=== PATIENT | male | born 1945 | race Caucasian/White ===

== ENCOUNTER 2018-06-01 20:34 | Inpatient (IN) ==
[2018-06-01] MEDS ORDERED: HALOPERIDOL LACTATE 5 MG/ML VIAL IM ONE ×2 (20:44→20:55)
[2018-06-01] MEDS ORDERED: HALOPERIDOL LACTATE 5 MG/ML VIAL ONE (20:44)
[2018-06-01] MEDS ORDERED: 0.9 % SODIUM CHLORIDE 1,000 ML IV ONE (21:28)
--- NOTE | 2018-06-01 21:35 | Emergency Department Note ---
Altered Mental Status HPI - General Source: family, police Mode of arrival: wheelchair Limitations: altered mental status - History of Present Illness MD complaint: altered mental status, confusion Onset (ago): day(s) (1) Timing confirmed by: spouse Severity: moderate Consistency of Symptoms: getting worse Context: history of similar presentation ( states patient has a urinary tract infection or drug overdose he acts confused and aggressive) <Ruma Pressley - Last Filed: 06/01/18 22:02> - General Source: patient, family Mode of arrival: wheelchair Limitations: altered mental status <Meera Bearisaura Cole - Last Filed: 06/02/18 02:26> - General Chief Complaint: Altered Mental Status Stated Complaint: confusion Time Seen by Provider: 06/01/18 20:48 - History of Present Illness HPI Narrative: 72-year-old male in the ED with present. Patient was combative in the parking lot and police were called to assist with getting patient into hospital. Patient was escorted with 6 police officers in a wheelchair to assist patient from not falling out of the wheelchair due to his confusion and aggressiveness. Patient was placed in T7 with the assist of police officers. Patient was not oriented to person place time or situation and aggressive. provided health history. Patient saw Dr. Carrero 05/09/18 and had assessment and plan for his recurrent UTIs. Patient was to increase total fluid intake to 2 L a day and after current antibiotic regimen of Augmentin was finished he was to begin taking prophylactic nitrofurantoin 100 mg every night. stated this did not occur due to batteries being changed in his brain stimulator. visited with Dr. celis today on the phone and had prescription sent to pharmacy for pickup. Medication was to start tomorrow. This afternoon patient was still taking oral medications. But states over the last week he has had decreased activity coupled with decreased sleeping habits. states he has only slept a couple hours here and there and this is not normal for him. Patient has chronic kidney disease stage III, hypertension, Parkinson's, nephrolithiasis, malignant lymphoma, recurrent UTIs. (Ruma Pressley) Patient was checked out to me at shift change. I discussed this patient with Ruma AMARAL; I agree with her evaluation management documentation. History is as above in particular patient's and daughter note that he has significant difficulty with UTIs and is seeing Dr. Carrero. He just finished a regimen of Augmentin and was scheduled to start Macrobid tonight but did not. Patient typically gets combative with altered mental status when he has a UTI and this is typical for him the last 12 times or so he has had UTIs. I reviewed Dr. Carrero's note Multiple complicating features including Parkinson's with history of deep brain stimulator (Rock Bear) - Related Data Home Medications Medication Instructions Recorded Confirmed Citalopram [Celexa] 20 mg PO DAILY 01/22/15 06/01/18 Pantoprazole [Protonix] 40 mg PO DAILY 01/22/15 06/01/18 Aspirin [Lo-Dose Aspirin EC] 81 mg PO DAILY 09/07/16 06/01/18 clonazePAM [KlonoPIN] 0.5 mg PO ONCE 04/11/17 06/01/18 fluoxetine 20 mg tablet 20 mg PO QDAY 09/27/17 06/01/18 carbidopa 25 mg-levodopa 100 mg 1 tab PO .COMPLEX tab 05/10/18 06/01/18 tablet ropinirole 4 mg tablet 4 mg PO TID tab 05/10/18 06/01/18 Memantine [Namenda] 10 mg PO BID 06/01/18 06/01/18 Previous Rx's Medication Instructions Recorded lisinopril 10 mg tablet 10 mg PO QDAY #30 tab 10/11/17 Allergies Allergy/AdvReac Type Severity Reaction Status Date / Time shellfish derived Allergy Severe softshell Verified 06/01/18 20:40 fish, hives morphine AdvReac Intermediate HALLUCINATIONS, Verified 06/01/18 20:40 HYDROCODONE OK THOUGH Review of Systems All systems ED: reviewed and negative except as stated. <Ruma Pressley - Last Filed: 06/01/18 22:02> Limitations: ROS unobtainable due to patients medical condition <Rock Bear - Last Filed: 06/02/18 02:26> Past Medical History - Past Medical History Medical history: Reports: cancer (prostate and lymphoma), coronary artery disease, GERD, hypertension, kidney stones, renal disease, TIA, other (parkinson 's disease, RLS, hernia, anemia, Barretts) Psychiatric history: Reports: no psych history Surgical history ED: Reports: cataract, colectomy, colostomy, other (brain) - Social History smoking status: Former smoker Alcohol use: Reports: None Drug use: Reports: none <Ruma Pressley - Last Filed: 06/01/18 22:02> <Rock Bear - Last Filed: 06/02/18 02:26> - Past Medical History PMFSH Narrative: All Active Problems (Last Updated 05/10/18 @ 15:48 by Tabitha Shea) Chronic kidney disease, stage 4 (severe) (Chronic) Osteoarthritis (Chronic) Muscle weakness (Chronic) Sinusitis (Chronic) Depression (Chronic) History of falling (Chronic) Cough (Chronic) Nasal congestion (Chronic) Urinary tract infection (Acute) Pneumonia (Acute) Right middle lobe pneumonia (Acute) Parkinson disease (Chronic) Urgency of urination (Acute) Nephrolithiasis (Chronic) Febrile illness (Chronic) Hypernatremia (Chronic) Hypertensive renal disease (Chronic) Anemia (Chronic) CKD (chronic kidney disease), stage III (Chronic) Hx of external ear surgery (Acute) Hx of brain surgery (Acute) Hx of colostomy (Acute) Hx of colectomy (Acute) Restless leg syndrome (Chronic) Prostate cancer (Chronic) Parkinsons disease (Chronic) Pain in joint, shoulder region (Chronic) Urinary incontinence (Chronic) MRSA (methicillin resistant Staphylococcus aureus) (Chronic) Malignant lymphoma (Chronic) Hypertension, essential (Chronic) Fracture, humerus closed (Chronic) Incisional hernia (Chronic) Gastroesophageal reflux (Chronic) Fatigue (Chronic) Diarrhea (Chronic) Chest pain (Chronic) CAD (coronary artery disease) (Chronic) Benign localized hyperplasia of prostate without urinary obstruction (Chronic) Monroy's esophagus (Chronic) Renal failure (Chronic) TIA (transient ischemic attack) (Chronic) Past Surgical History (Last Reviewed 05/09/18 @ 08:35 by Macie Barros RN) Hx of external ear surgery (Acute) Hx of brain surgery (Acute) Hx of colostomy (Acute) Hx of colectomy (Acute) Family History (Last Reviewed 05/09/18 @ 08:35 by Macie Barros RN) no family member listed Atherosclerosis of coronary artery (Ruma Pressley) Reviewed (Rock Bear) Physical Exam Limitations: altered mental status General appearance: in no apparent distress (post medication administration- sleeping) Head: atraumatic, normocephalic, normal inspection Eye: Present: normal appearance, miosis (constriction). Absent: conjunctival injection, periorbital swelling, periorbital tenderness ENT: normal exam, normal oropharynx, mucous membranes dry, normal external ear exam Neck: Present: normal inspection. Absent: tenderness, lymphadenopathy Chest: Present: normal inspection, symmetric chest wall rise, other (two identical incision sites where neuro stimulator batteries placed, sites well proximated and covered with steri-strips 3cm in length). Absent: tenderness Respiratory: Present: normal lung sounds bilaterally, other (currently snoring with SPO2 95% RA). Absent: respiratory distress, rales/crackles, wheezes, stridor Cardiovascular: Present: regular rate, normal rhythm. Absent: systolic murmur, diastolic murmur Abdominal: Present: soft, normal bowel sounds, hernia, other (old surgical scar vertical center abdomen). Absent: distention, tenderness, guarding, rebound, rigidity Extremities: Present: normal inspection. Absent: pedal edema Skin: Present: warm, dry, intact, normal color. Absent: rash, cyanosis, diaphoresis, erythema <Ruma Pressley - Last Filed: 06/01/18 22:02> <Rock Bear - Last Filed: 06/02/18 02:26> Patient was initially thrashing about before we gave him Haldol. Haldol did help with calming him down however his sleep is fitful and he snored loudly. He developed elevated blood pressure while sleeping (211/169 ) and labetalol was given for that, which did help (Rock Bear) Vital Signs Temperature 97.0 F 06/01/18 20:35 Temperature 97.0 F 06/01/18 20:35 Pulse Rate 86 06/02/18 01:01 Respiratory Rate 21 06/02/18 01:01 Blood Pressure 176/90 06/02/18 01:01 Pulse Oximetry (%) 94 06/02/18 01:01 Altered Mental Status - Medical Records Medical records reviewed: Yes I reviewed the patient's medical records. - Lab Data Lab results reviewed: Yes I reviewed the patient's lab results. Result diagrams: 06/01/18 21:30 06/01/18 21:29 <Ruma Pressley - Last Filed: 06/01/18 22:02> - Lab Data Lab results reviewed: Yes I reviewed the patient's lab results. Result diagrams: 06/01/18 21:30 06/01/18 21:29 <Rock Bear - Last Filed: 06/02/18 02:26> - [facility] Narrative Medical decision making narrative: Dr. Bear consulted upon patient arrival and verified 5-10 mg Haldol IM appropriate for calming patient. Total of 10 mg was administered in 2 separate 5mg doses. Once patient calmed RN and tech placed patient into gown started IV , tisha blood, catheterized patient for urine sample. Provided pt history and diagnostics to due to end of this providers shift. Further patient care will be provided by Dr. Bear. (HuanYumikoRuma Marianela) - Lab Data Lab Results 06/01/18 06/01/18 06/01/18 Range/Units 21:29 21:30 21:34 WBC 6.2 (4.5-11.0) K/mcL RBC 4.16 L (4.50-5.90) M/mcL Hgb 13.6 (13.5-16.5) g/dL Hct 41.3 (41.0-55.0) % MCV 99.2 (80.0-100.0) fL MCH 32.7 (26.0-34.0) pg MCHC 33.0 (31.0-36.0) g/dL RDW 13.4 (11.5-14.5) % Plt Count 205 (140-440) K/mcL MPV 7.0 L (7.4-10.4) fL Gran % 55.8 (38.0-78.0) % Lymph % (Auto) 32.2 (15.5-49.0) % [place] % (Auto) 6.9 (1.0-12.0) % Eos % (Auto) 4.2 (0.0-7.0) % Baso % (Auto) 0.9 (0.0-2.0) % Gran # 3.4 (1.8-8.0) K/mcL Lymph # (Auto) 2.0 (1.5-4.8) K/mcL [place] # (Auto) 0.4 (0.1-0.9) K/mcL Eos # (Auto) 0.3 (0.0-0.7) K/mcL Baso # (Auto) 0.1 (0.0-0.3) K/mcL Sodium 147 H (133-145) mmol/L Potassium 3.9 (3.3-5.1) mmol/L Chloride 104 (96-108) mmol/L Carbon Dioxide 27 (22-30) mmol/L Anion Gap 16.0 (8-16) BUN 30 H (8-23) mg/dl Creatinine 1.9 H (0.7-1.2) mg/dl GFR Calculation 34 Glucose 156 H (70-105) mg/dL Calcium 9.5 (8.6-10.4) mg/dl Total Bilirubin 0.5 (0.0-1.0) mg/dL AST 21 (0-37) U/l ALT < 5 (0-40) U/l Alkaline Phosphatase 88 (39-117) U/L Total Protein 7.4 (5.9-8.4) gm/dL Albumin 4.0 (3.2-5.2) gm/dL Globulin 3.4 (2.2-3.7) gm/dL Albumin/Globulin Ratio 1.2 (1.0-2.3) Amylase 52 (28-100) U/L Lipase 14 (7-60) U/L Urine Color Yellow Urine Appearance Clear Urine pH 6.0 (5.0-9.0) Ur Specific [place] 1.017 (1.000-1.035) Urine Protein Neg (NEG) mg/dL Urine Glucose (UA) Negative (NEG) mg/dL Urine Ketones Neg (NEG) mg/dL Urine Occult Blood Neg (<0.03) mg/dL Urine Nitrate Neg (NEG) Urine Bilirubin Neg (NEG) mg/dL Urine Urobilinogen Neg (NEG) mg/dL Ur Leukocyte Esterase Neg (NEG) /uL Urine RBC 1 (0-1) /hpf Urine WBC 1 (0-4) /hpf Ur Squamous Epith Cells 0 (0-4) /hpf Urine Bacteria 0 (0) /hpf Urine Mucus Few (0) /hpf Ur Culture Indicated? No Disposition Pt seen by OCCUPATIONAL HYGIENIST/PA only: No (Chema) Time of Disposition: 22:07 <Ruma Pressley - Last Filed: 06/01/18 22:02> Pt seen by OCCUPATIONAL HYGIENIST/PA only: No <Rock Bear - Last Filed: 06/02/18 02:26> Clinical Impression: Hypernatremia, CKD (chronic kidney disease), stage III Altered mental status Qualifiers: Altered mental status type: disorientation Qualified Code(s): R41.0 - Disorientation, unspecified Pneumonia Qualifiers: Pneumonia type: due to unspecified organism Laterality: right Lung location: upper lobe of lung Qualified Code(s): J18.1 - Lobar pneumonia, unspecified organism Summary: Patient initially seen by Ruma AMARAL. At shift change I assumed care. Given labetalol for blood pressure 211/169. Rocephin for presumed UTI partially treated. Labetalol help with blood pressure bring it down into the 150s and 60s systolic. Hypernatremia is seen on laboratory as well as slightly elevated creatinine at 1.9-concern for free water depletion. I reviewed his chart note that he has had multiple previous UTIs that were pansensitive I discussed the case with Dr. Orellana hospitalist with regards to admission for altered mental status and likely partially treated urinary tract infection. He was concerned about other causes of altered mental status so advised CT scan and chest x-ray- We will get CT scan of the head to further sort out altered mental status and chest x-ray. However as I have to send the patient to [facility] because our CT scanner is down, I will give him a dose of Ativan prior to going CT head is read as no acute findings. However chest x-ray shows bilateral pneumonia and widened mediastinum. He is sent back to [facility] for CT scan of the chest without contrast. CT scan of the chest shows widened mediastinum with tortuous aorta but no dissection. Notable right upper infiltrate. He received another dose of Ativan to help with keeping him calm for CT scan Discussed findings with Dr. Orellana, the hospitalist, who agreed to accept the patient for altered mental status and pneumonia (Rock Bear) Disposition: Xfer As Inpt ([facility]) Condition: Serious Referrals: Lobito Do ARNP [Primary Care Provider] -
[2018-06-01 22:14] LABS: Basophils # (Auto) 0.1 K/mcL (0.0-0.3); Basophils % (Auto) 0.9 % (0.0-2.0); Eosinophils # (Auto) 0.3 K/mcL (0.0-0.7); Eosinophils % (Auto) 4.2 % (0.0-7.0); Granulocytes % (Auto) 55.8 % (38.0-78.0); Lymphocytes % (Auto) 32.2 % (15.5-49.0); Mean Cell Volume 99.2 fL (80.0-100.0); Mean Corpuscular Hemoglobin 32.7 pg (26.0-34.0); Monocytes # (Auto) 0.4 K/mcL (0.1-0.9); Monocytes % (Auto) 6.9 % (1.0-12.0); Platelet Count 205 K/mcL (140-440); RBC 4.16 M/mcL (4.50-5.90); Red Cell Distribution Width 13.4 % (11.5-14.5)
[2018-06-01 22:32] LABS: Appearance,Urine CLEAR; Bacteria,Urine 0 /hpf (0); Bilirubin,Urine NEG (NEG); Color,Urine YELLOW; Glucose,Urine (UA) NEGATIVE (NEG); Leukocyte Esterase,Urine NEG /uL (NEG); Mucus,Urine FEW /hpf (0); Protein,Urine NEG (NEG); Specific Gravity,Urine 1.017 (1.000-1.035); Urine Blood NEG mg/dL (<0.03); Urine RBC 1 /hpf (0-1); Urine Squamous Epithelial Cell 0 /hpf (0-4); Urine WBC 1 /hpf (0-4); Urobilinogen,Urine NEG (NEG)
[2018-06-01 22:38] LABS: ALT/SGPT < 5 U/l (0-40); Albumin/Globulin Ratio 1.2 (1.0-2.3); Alkaline Phosphatase 88 U/L (39-117); Amylase 52 U/L (28-100); Blood Urea Nitrogen 30 mg/dl (8-23); Lipase 14 U/L (7-60)
[2018-06-01] MEDS ORDERED: LABETALOL HCL 20 MG/4 ML SYRINGE IV ONE (22:50)
[2018-06-01] MEDS ORDERED: cefTRIAXone 1 GM VIAL IV ONE (22:51)
[2018-06-01] MEDS ORDERED: LORazepam 2 MG/ML VIAL IV ONE (23:26)
[2018-06-02] MEDS ORDERED: LORazepam 2 MG/ML VIAL IV ONE (01:00)
[2018-06-02] MEDS ORDERED: methylPREDNISolone SOD SUCC 125 MG/2 ML VIAL IV ONE (02:15)
[2018-06-02] MEDS ORDERED: IPRATROPIUM/ALBUTEROL 3 ML AMPUL.NEB NEB ONE (02:15)
[2018-06-02] MEDS ORDERED: VANCOMYCIN PER PHARMACY IV ONE (03:06)
[2018-06-02] MEDS ORDERED: PIPERACILLIN SODIUM/TAZOBACTAM 3.375 GM in DEXTROSE 5% IN WATER 50 ML IV SCH (03:06)
[2018-06-02] MEDS ORDERED: VANCOMYCIN 1,000 MG in 0.9 % SODIUM CHLORIDE 250 ML IV ONE (03:06)
[2018-06-02] MEDS ORDERED: AZITHROMYCIN 500 MG in DEXTROSE 5% IN WATER 250 ML IV ONE (03:06)
[2018-06-02] MEDS ORDERED: DEXMEDETOMIDINE HCL 400 MCG/100 ML BAG IV PRN (03:06)
[2018-06-02] MEDS ORDERED: LORazepam 2 MG/ML VIAL IV PRN (03:06)
[2018-06-02] MEDS ORDERED: ACETAMINOPHEN 325 MG TABLET PO PRN (03:06)
[2018-06-02] MEDS ORDERED: NALOXONE HCL 0.4 MG/ML VIAL IV PRN (03:06)
[2018-06-02] MEDS ORDERED: LORazepam 2 MG/ML VIAL ONE ×2 (03:16→05:35)
[2018-06-02] MEDS: IPRATROPIUM/ALBUTEROL 3 ML AMPUL.NEB NEB SCH ×6 (04:23→23:12)
[2018-06-02] MEDS: 0.9 % SODIUM CHLORIDE 10 ML SYRINGE IV SCH ×3 (04:24→22:32)
[2018-06-02] MEDS: THIAMINE 100 MG in 0.9 % SODIUM CHLORIDE 50 ML IV SCH ×2 (04:47→09:54)
[2018-06-02] MEDS: DEXTROSE 5%-1/2NS W/20MEQ KCL 1,000 ML IV SCH ×2 (06:10→17:24)
--- NOTE | 2018-06-02 06:25 | XRay Report ---
INDICATION: Altered mental status TECHNIQUE: AP chest x-ray, portable supine COMPARISON: 06/06/2016, 06/02/2016 FINDINGS: There are bilateral power packs with leads ascending off the plane of this film No parenchymal consolidation. There is peribronchial thickening which may indicate bronchitis or interstitial edema. No change in heart size. Follow-up upright PA and lateral chest x-ray recommended when clinically appropriate IMPRESSION: 1. Suboptimal evaluation 2. Possible interstitial edema. No focal infiltrates Interpreted and Authenticated by: Sno Arvizu 06/02/18
[2018-06-02] MEDS: methylPREDNISolone SOD SUCC 125 MG/2 ML VIAL IV SCH ×3 (07:17→22:32)
[2018-06-02] MEDS ORDERED: VANCOMYCIN PER PHARMACY IV SCH (08:00)
[2018-06-02] MEDS ORDERED: VANCOMYCIN 500 MG in 0.9 % SODIUM CHLORIDE 100 ML IV ONE (09:00)
[2018-06-02] MEDS: PANTOPRAZOLE 40 MG TABLET PO SCH (09:49)
[2018-06-02] MEDS: ASPIRIN 81 MG TAB.CHEW PO SCH (09:50)
[2018-06-02] MEDS: CARBIDOPA/LEVODOPA 25/100 TABLET PO SCH ×5 (09:50→19:41)
[2018-06-02] MEDS: HEPARIN 5,000 UNIT/ML VIAL SQ SCH ×2 (10:15→21:03)
[2018-06-02 10:16] LABS: Basophils # (Auto) 0 K/mcL (0.0-0.3); Basophils % (Auto) 0.3 % (0.0-2.0); Eosinophils # (Auto) 0 K/mcL (0.0-0.7); Eosinophils % (Auto) 0 % (0.0-7.0); Lymphocytes # (Auto) 0.4 K/mcL (1.5-4.8); Lymphocytes % (Auto) 4.2 % (15.5-49.0); Mean Cell Volume 99.8 fL (80.0-100.0); Mean Corpuscular HGB Conc 32.6 g/dL (31.0-36.0); Mean Corpuscular Hemoglobin 32.5 pg (26.0-34.0); Monocytes # (Auto) 0 K/mcL (0.1-0.9); Monocytes % (Auto) 0.5 % (1.0-12.0); Platelet Count 209 K/mcL (140-440); RBC 4.51 M/mcL (4.50-5.90); Red Cell Distribution Width 13.4 % (11.5-14.5)
[2018-06-02 10:49] LABS: ALT/SGPT 11 U/l (0-40); Albumin/Globulin Ratio 1.1 (1.0-2.3); Alkaline Phosphatase 85 U/L (39-117); Bilirubin,Direct < 0.2 mg/dL (0.0-0.3); Blood Urea Nitrogen 27 mg/dl (8-23); Gamma Glutamyl Transpeptidase 17 U/L (8-61); Uric Acid 7.9 mg/dL (2.5-8.0)
--- NOTE | 2018-06-02 11:41 | Internal Med History&Physical ---
Medical - H&P: HPI Patient information: Note initiated : 06/02/18 at 11:39 am Service Date, if different from initiated Date: [] Patient: Pop Capellan a 72 y/o M admitted on 06/02/18 for confusion. Chief Complaint: [] History of present illness: Mr. Capellan is a 72 year old M with history of dementia, Parkinson's disease chronic kidney disease, recurrent urinary tract infection, presents to the emergency room for altered mental status. provided most of the history. Patient was drowsy and knocked out at the time of my evaluation. According to the the patient does not be doing well since yesterday, she also noted that he was a bit short of breath a few days ago. Since yesterday the patient has been acting a bit confused, and not himself. She decided to bring him to the emergency room as in the past whenever he has been confused that has been an infection that was the cause of his confusion. Usually a urinary tract infection. The patient while agreed to be checked out when he came to the hospital became very aggressive in the parking lot. [employer] needed to be called in to bring him to the emergency room. He was extremely aggressive and belligerent. He required 6 railroad yard worker to subdue him and required multiple doses of Haldol to calm him down. Blood work in the emergency room initially was negative, urine analysis was clear. The patient has had recurrent urinary tract infections with a negative or mildly positive UTI. He has had recurrent enterococcus pansensitive UTIs. The patient chest x-ray showed no focal infiltrates as per the radiology read however on our read we were concerned about a widened mediastinum. Patient had a CT scan of the chest done last night that showed infiltrates in the right upper lobe. Patient was admitted to the hospital for further management. Head CT scan done was negative for any acute process. Patient has a history of recurrent urinary tract infection, follows with Dr. Vásquez, recently treated for UTI by Dr. Teran with amoxicillin. The patient was also seen by infectious disease clinic and he was supposed to be started on a suppressive therapy he had not picked up her medications for same yet. ROS unobtainable: due to mental status Medical - H&P: PMH Medical history: Medical History (Last Updated 05/10/18 @ 15:48 by Tabitha Shea) Chronic kidney disease, stage 4 (severe) (Chronic) Osteoarthritis (Chronic) Muscle weakness (Chronic) Sinusitis (Chronic) Depression (Chronic) History of falling (Chronic) Cough (Chronic) Nasal congestion (Chronic) Urinary tract infection (Acute) Pneumonia (Acute) Right middle lobe pneumonia (Acute) Parkinson disease (Chronic) Confusion associated with infection (Resolved) Nephrolithiasis (Chronic) Febrile illness (Chronic) Hypernatremia (Chronic) Hypertensive renal disease (Chronic) Anemia (Chronic) CKD (chronic kidney disease), stage III (Chronic) Restless leg syndrome (Chronic) Prostate cancer (Chronic) Parkinsons disease (Chronic) Pain in joint, shoulder region (Chronic) Urinary incontinence (Chronic) MRSA (methicillin resistant Staphylococcus aureus) (Chronic) Malignant lymphoma (Chronic) Hypertension, essential (Chronic) Fracture, humerus closed (Chronic) Incisional hernia (Chronic) Gastroesophageal reflux (Chronic) Fatigue (Chronic) Diarrhea (Chronic) Chest pain (Chronic) CAD (coronary artery disease) (Chronic) Benign localized hyperplasia of prostate without urinary obstruction (Chronic) Monroy's esophagus (Chronic) Renal failure (Chronic) TIA (transient ischemic attack) (Chronic) Surgical history: Past Surgical History (Last Reviewed 05/09/18 @ 08:35 by Macie Barros RN) Hx of external ear surgery (Acute) Hx of brain surgery (Acute) Hx of colostomy (Acute) Hx of colectomy (Acute) Pertinent family history: Family History (Last Reviewed 05/09/18 @ 08:35 by Macie Barros RN) no family member listed Atherosclerosis of coronary artery Medical - H&P: Meds Home Medications Medication Instructions Recorded Confirmed Type Citalopram [Celexa] 20 mg PO DAILY 01/22/15 06/01/18 History Pantoprazole [Protonix] 40 mg PO DAILY 01/22/15 06/01/18 History Aspirin [Lo-Dose Aspirin EC] 81 mg PO DAILY 09/07/16 06/01/18 History clonazePAM [KlonoPIN] 0.5 mg PO ONCE 04/11/17 06/01/18 History fluoxetine 20 mg tablet 20 mg PO QDAY 09/27/17 06/01/18 History lisinopril 10 mg tablet 10 mg PO QDAY #30 tab 10/11/17 06/01/18 Rx carbidopa 25 mg-levodopa 100 mg 1 tab PO .COMPLEX tab 05/10/18 06/01/18 History tablet ropinirole 4 mg tablet 4 mg PO TID tab 05/10/18 06/01/18 History Memantine [Namenda] 10 mg PO BID 06/01/18 06/01/18 History Allergies Allergy/AdvReac Type Severity Reaction Status Date / Time shellfish derived Allergy Severe softshell Verified 06/01/18 20:40 fish, hives morphine AdvReac Intermediate HALLUCINATIONS, Verified 06/01/18 20:40 HYDROCODONE OK THOUGH Medical - H&P: Exam - Constitutional Vitals: Temp Pulse Resp BP Pulse Ox 98.1 F 89 18 103/53 96 06/02/18 10:03 06/02/18 10:03 06/02/18 10:03 06/02/18 10:03 06/02/18 10:03 Exam: GENERAL: The patient is a well-developed, well-nourished , sedated and snoring heavily . VITAL SIGNS: Reviewed and as noted elsewhere. HEENT: Head is normocephalic and atraumatic. Extraocular muscles are intact. Pupils are equal, round, and reactive to light. Nares appeared normal. Mouth appears any without lesions. Mucous membranes are dry. NECK: Normal to inspection, Supple, No lymphadenopathy or thyromegaly. LUNGS: Air entry equal on both sides, prolonged expiratory phase, significant wheezing bilaterally. Inspiratory coarse breath sounds noted. HEART: Regular rate and rhythm normal, S1 and S2 heard, no Gallop, S3 or Rub Noted, No Gross murmur heard. ABDOMEN: Soft, nontender, and nondistended. Positive bowel sounds. No hepatosplenomegaly was noted. EXTREMITIES: No cyanosis, clubbing, rash, lesions or edema. NEUROLOGIC: Cranial nerves II through XII are grossly intact. Motor and Sensory System Grossly Intact, limited exam due to lack of patient cooperation PSYCHIATRIC: Patient was sedated on my evaluation based on the ER report he was very aggressive in the emergency room. SKIN: No ulceration or wounds noted, No jaundice, No rash noted. Medical - H&P: Reslt - Labs CBC & Chem 7: 06/02/18 09:10 06/02/18 09:10 Labs: Short CBC 06/01/18 06/02/18 Range/Units 21:30 09:10 WBC 6.2 9.8 (4.5-11.0) K/mcL Hgb 13.6 14.7 (13.5-16.5) g/dL Hct 41.3 45.0 (41.0-55.0) % Plt Count 205 209 (140-440) K/mcL BMP 06/01/18 06/02/18 21:29 09:10 Sodium 147 H 147 H Potassium 3.9 3.7 Chloride 104 109 H Carbon Dioxide 27 23 BUN 30 H 27 H Creatinine 1.9 H 1.8 H Glucose 156 H 156 H Calcium 9.5 9.0 Liver Function 06/01/18 06/02/18 Range/Units 21:29 09:10 Total Bilirubin 0.5 0.6 (0.0-1.0) mg/dL Direct Bilirubin < 0.2 (0.0-0.3) mg/dL GGT 17 (8-61) U/L AST 21 45 H (0-37) U/l ALT < 5 11 (0-40) U/l Alkaline Phosphatase 88 85 (39-117) U/L Albumin 4.0 4.0 (3.2-5.2) gm/dL Urine 06/01/18 Range/Units 21:34 Urine Color Yellow Urine Appearance Clear Urine pH 6.0 (5.0-9.0) Ur Specific [place] 1.017 (1.000-1.035) Urine Protein Neg (NEG) mg/dL Urine Glucose (UA) Negative (NEG) mg/dL Medical - H&P: A/P - Narrative A/P Narrative: A/P Altered Mental status/ Acute Delirum-patient has a history of same especially whenever he gets infections. At this time he looks like he has a pneumonia brewing. We will treat the infection with IV vancomycin and Zosyn in light of recent antibiotic therapy. Follow blood cultures. The patient is extremely aggressive and therefore I have admitted the patient to the ICU. Head CT is negative. Patient will be treated with the Precedex drip should he become aggressive, in light of his advanced age possible delirium and Parkinson's disease I would like to avoid Haldol and Ativan as much as possible. Started on IV thiamine Pneumonia-healthcare associated pneumonia treated with vancomycin and Zosyn follow blood cultures Parkinson's disease-resume home medications when he is able to, the patient has deep brain stimulators placed in battery was changed recently. Dementia-continue home dose of Namenda. Hypernatremia-mild sodium elevation on IV fluids. Hypertension-patient had elevated blood pressures in the ED requiring IV blood pressure medications however since admission his blood pressure has not been an issue. Enterococcus urinary tract infection-at this time the urinalysis is extremely clear no evidence to suggest a UTI however given his past experience he may very well have an infection that is not showing up in his UA. IV vancomycin should cover for enterococcal infection. h/o CAD/ TIA- STable continue home medications for smae h/o B cell lymphoma- last chemo 5 yrs ago. DVT hep sq Diet NPO for now, cardiac diet when awake and able to tolerate po Full code Plan of care reviewed with the patient and family. Medical - H&P: Qual - VTE Deep Vein Thrombosis/Pulmonary Embolism Present on Admission: No Social History - Tobacco smoking status: Unknown if ever smoked - Alcohol alcohol intake frequency: a few times a month - Substance use substance use type: does not use
[2018-06-02] MEDS: PIPERACILLIN SODIUM/TAZOBACTAM 2.25 GM in DEXTROSE 5% IN WATER 50 ML IV SCH ×3 (12:56→23:54)
[2018-06-02] MEDS: MEMANTINE 10 MG TABLET PO SCH ×2 (17:19→20:54)
[2018-06-02] MEDS: CITALOPRAM 20 MG TABLET PO SCH (17:19)
[2018-06-02] MEDS: LISINOPRIL 10 MG TABLET PO SCH (17:20)
[2018-06-02] MEDS: rOPINIRole 1 MG TABLET PO SCH ×2 (17:20→20:54)
[2018-06-02] MEDS ORDERED: FAMOTIDINE/PF 20 MG/2 ML VIAL IV SCH (21:00)
[2018-06-03] MEDS: IPRATROPIUM/ALBUTEROL 3 ML AMPUL.NEB NEB SCH ×6 (03:08→23:27)
[2018-06-03] MEDS: DEXTROSE 5%-1/2NS W/20MEQ KCL 1,000 ML IV SCH (04:57)
[2018-06-03 05:17] LABS: Basophils # (Auto) 0 K/mcL (0.0-0.3); Basophils % (Auto) 0.1 % (0.0-2.0); Eosinophils # (Auto) 0 K/mcL (0.0-0.7); Eosinophils % (Auto) 0 % (0.0-7.0); Granulocytes % (Auto) 92.4 % (38.0-78.0); Lymphocytes # (Auto) 0.7 K/mcL (1.5-4.8); Mean Cell Volume 100.7 fL (80.0-100.0); Mean Corpuscular HGB Conc 32.8 g/dL (31.0-36.0); Monocytes # (Auto) 0.2 K/mcL (0.1-0.9); Monocytes % (Auto) 1.5 % (1.0-12.0); Platelet Count 203 K/mcL (140-440); RBC 3.97 M/mcL (4.50-5.90); Red Cell Distribution Width 14.2 % (11.5-14.5)
[2018-06-03] MEDS: methylPREDNISolone SOD SUCC 125 MG/2 ML VIAL IV SCH (05:38)
[2018-06-03] MEDS: PIPERACILLIN SODIUM/TAZOBACTAM 2.25 GM in DEXTROSE 5% IN WATER 50 ML IV SCH ×4 (05:38→23:51)
[2018-06-03] MEDS: 0.9 % SODIUM CHLORIDE 10 ML SYRINGE IV SCH ×4 (05:38→21:27)
[2018-06-03 05:41] LABS: ALT/SGPT 19 U/l (0-40); Albumin 3.5 gm/dL (3.2-5.2); Alkaline Phosphatase 66 U/L (39-117); Bilirubin,Direct < 0.2 mg/dL (0.0-0.3); Blood Urea Nitrogen 31 mg/dl (8-23); Gamma Glutamyl Transpeptidase 14 U/L (8-61); Uric Acid 6.7 mg/dL (2.5-8.0)
[2018-06-03] MEDS: THIAMINE 100 MG in 0.9 % SODIUM CHLORIDE 50 ML IV SCH (07:17)
[2018-06-03] MEDS: PANTOPRAZOLE 40 MG TABLET PO SCH (07:19)
[2018-06-03] MEDS: CARBIDOPA/LEVODOPA 25/100 TABLET PO SCH ×5 (07:32→21:28)
[2018-06-03] MEDS ORDERED: MAGNESIUM SULFATE 2 GM/50 ML BAG IV ONE (08:27)
[2018-06-03] MEDS ORDERED: DEXTROSE 5%-1/2NS W/40MEQ KCL 1,000 ML IV SCH (08:30)
[2018-06-03] MEDS ORDERED: POTASSIUM CHLORIDE 20 MEQ PACKET PO ONE (08:42)
[2018-06-03] MEDS ORDERED: AZITHROMYCIN 250 MG in DEXTROSE 5% IN WATER 250 ML IV SCH (09:00)
[2018-06-03] MEDS ORDERED: VANCOMYCIN 1,500 MG in 0.9 % SODIUM CHLORIDE 500 ML IV SCH (09:00)
[2018-06-03] MEDS: ASPIRIN 81 MG TAB.CHEW PO SCH (09:55)
[2018-06-03] MEDS: HEPARIN 5,000 UNIT/ML VIAL SQ SCH ×2 (09:55→21:27)
[2018-06-03] MEDS: LISINOPRIL 10 MG TABLET PO SCH (09:55)
[2018-06-03] MEDS: CITALOPRAM 20 MG TABLET PO SCH (09:55)
[2018-06-03] MEDS: rOPINIRole 1 MG TABLET PO SCH ×3 (10:10→21:28)
[2018-06-03] MEDS: MEMANTINE 10 MG TABLET PO SCH ×2 (10:10→21:28)
[2018-06-03] MEDS ORDERED: NALOXONE HCL 0.4 MG/ML VIAL IV PRN (11:46)
[2018-06-03] MEDS ORDERED: VANCOMYCIN PER PHARMACY IV SCH (11:46)
[2018-06-03] MEDS ORDERED: ACETAMINOPHEN 325 MG TABLET PO PRN (11:46)
--- NOTE | 2018-06-03 12:49 | Internal Med Progress Note ---
Medical - PN: Subj Patient information: Note initiated : 06/03/18 at 12:46 pm Service Date, if different from initiated Date: [] Patient: Pop Capellan a 72 y/o M admitted on 06/02/18 for confusion. Chief Complaint: [] Interval history: Mr. Capellan is a 72 year old M with history of dementia, Parkinson's disease chronic kidney disease, recurrent urinary tract infection, presents to the emergency room for altered mental status. provided most of the history. Patient was drowsy and knocked out at the time of my evaluation. According to the the patient does not be doing well since yesterday, she also noted that he was a bit short of breath a few days ago. Since yesterday the patient has been acting a bit confused, and not himself. She decided to bring him to the emergency room as in the past whenever he has been confused that has been an infection that was the cause of his confusion. Usually a urinary tract infection. The patient while agreed to be checked out when he came to the hospital became very aggressive in the parking lot. Residential Mortgage Manager needed to be called in to bring him to the emergency room. He was extremely aggressive and belligerent. He required 6 armored vehicle officer to subdue him and required multiple doses of Haldol to calm him down. Blood work in the emergency room initially was negative, urine analysis was clear. The patient has had recurrent urinary tract infections with a negative or mildly positive UTI. He has had recurrent enterococcus pansensitive UTIs. The patient chest x-ray showed no focal infiltrates as per the radiology read however on our read we were concerned about a widened mediastinum. Patient had a CT scan of the chest done last night that showed infiltrates in the right upper lobe. Patient was admitted to the hospital for further management. Head CT scan done was negative for any acute process. Patient has a history of recurrent urinary tract infection, follows with Dr. Vásquez, recently treated for UTI by Dr. Teran with amoxicillin. The patient was also seen by infectious disease clinic and he was supposed to be started on a suppressive therapy he had not picked up her medications for same yet. 06/03 Patient seen and examined, overnight events reviewed. Patient is improving. Mental status is much better this morning on my evaluation he was sitting in chair cooperative reading a newspaper. Did not require any medications overnight. Hemodynamically stable. Tolerated breakfast this morning well. Moved from PCU status to telemetry status this morning. The patient also had liquid stools today C. difficile has been sent. Patient denies any acute concerns or complaints Pertinent ROS: Denies headache, dizziness Denies chest pain, palpitations Denies cough or shortness of breath Denies abdominal pain, nausea or vomiting. Diarrhea reported - Constitutional Vitals: Vital Signs Temp Pulse Resp BP Pulse Ox 99.8 F H 106 H 20 138/85 97 06/03/18 12:10 06/03/18 12:10 06/03/18 12:10 06/03/18 12:10 06/03/18 12:10 Period Temp Pulse Resp BP Sys/Howe Pulse Ox Last 24 Hr 97.2 F-99.8 F 77-108 15-35 86-138/56-99 92-100 Intake and Output 06/02/18 06/03/18 06/03/18 21:59 05:59 13:59 Intake Total 1105 / 1105 1355 / 1355 1184 / 1184 Output Total 232 / 232 300 / 300 490 / 490 Balance 873 / 873 1055 / 1055 694 / 694 Weight 185 lb 12.8 oz Intake & Output: Intake & Output 06/02/18 06/03/18 06/03/18 21:59 05:59 13:59 Intake Total 1105 / 1105 1355 / 1355 1184 / 1184 Output Total 232 / 232 300 / 300 490 / 490 Balance 873 / 873 1055 / 1055 694 / 694 Weight 185 lb 12.8 oz Intake: IV 1105 / 1105 995 / 995 664 / 664 Zithromax 250 mg In Dextrose 5% 250 / 250 in Water 250 ml @ 250 mls/hr IV Q24H [facility] Rx#:[id number] Dextrose 5%-1/2Ns W/20Meq KCl 1 1055 / 1055 945 / 945 263 / 263 ,000 ml @ 100 mls/hr IV .Q10H [facility] Rx#:[id number] Zosyn 2.25 gm In Dextrose 5% in 50 / 50 50 / 50 50 / 50 Water 50 ml @ 100 mls/hr IV Q6H [facility] Rx#:[id number] Vitamin B1 100 mg In Sodium 51 / 51 Chloride 0.9% 50 ml @ 50 mls/hr IV DAILY [facility] Rx#:[id number] Oral 360 / 360 520 / 520 Output: Urine Catheter Amount 232 / 232 300 / 300 340 / 340 Stool 150 / 150 Other: Meal Breakfast Percent of Meal Consumed 100% Urine Appearance Clear Clear Clear Straight Clear Clear Clear Urine Color Dark Yellow Dark Yellow Dark Yellow Straight Dark Yellow Dark Yellow Dark Yellow Urine Odor Normal Stool Size Large Small Stool Color Brown Brown Stool Consistency Loose Loose # of times incontinent of 1 Bowels Exam: Constitutional; Afebrile, cooperative, alert, not in distress. Respiratory system: Air Entry equal on both sides, No crackles or wheezing, no rhonchi. CVS- Rate tachycardic, rhythm regular, S1,S2 heard, no gallop, no rub. Abdomen- Soft nontender abdomen, no organomegaly, no tenderness, no guarding or rigidity, [employer]- AOOx3, moving all extremities, no gross focal deficit noted. Medical - PN: Obj Da - Labs CBC & Chem 7: 06/03/18 03:52 06/03/18 03:50 Labs: Abnormal Lab Results 06/03/18 06/03/18 06/02/18 03:52 03:50 09:10 WBC 11.1 H RBC 3.97 L Hgb 13.1 L Hct 40.0 L MCV 100.7 H MPV 7.2 L Gran % 92.4 H Lymph % (Auto) 6.0 L [place] % (Auto) Gran # 10.3 H Lymph # (Auto) 0.7 L [place] # (Auto) Sodium 147 H Chloride 109 H Carbon Dioxide 20 L BUN 31 H 27 H Creatinine 1.8 H 1.8 H Glucose 176 H 156 H Phosphorus 1.9 L AST 48 H 45 H Lactate Dehydrogenase 274 H 292 H 06/02/18 06/01/18 06/01/18 09:10 21:30 21:29 WBC RBC 4.16 L Hgb Hct MCV MPV 7.1 L 7.0 L Gran % 95.0 H Lymph % (Auto) 4.2 L [place] % (Auto) 0.5 L Gran # 9.3 H Lymph # (Auto) 0.4 L [place] # (Auto) 0 L Sodium 147 H Chloride Carbon Dioxide BUN 30 H Creatinine 1.9 H Glucose 156 H Phosphorus AST Lactate Dehydrogenase Meds: Medications Acetaminophen (Tylenol) 650 mg PO Q4-6HP PRN PRN Reason: PAIN/FEVER > 101 Albuterol/Ipratropium (Duoneb) 3 ml NEB Q4HRT [facility] Aspirin (Aspirin) 81 mg PO DAILY [facility] Carbidopa/Levodopa (Sinemet 25/100) 1 tab PO 5XD [facility] Citalopram Hydrobromide (Celexa) 20 mg PO DAILY [facility] Heparin Sodium (Porcine) (Heparin) 5,000 unit SQ Q12 [facility] Azithromycin 250 mg/ Dextrose 250 mls @ 250 mls/hr IV Q24H [facility] Stop: 06/05/18 09:59 Piperacillin Sod/Tazobactam (Sod 2.25 gm/ Dextrose) 50 mls @ 100 mls/hr IV Q6H [facility] Last Admin: 06/03/18 12:03 Dose: 100 mls/hr Thiamine HCl 100 mg/ Sodium (Chloride) 51 mls @ 50 mls/hr IV DAILY [facility] Stop: 06/07/18 10:02 Vancomycin HCl 1,500 mg/ (Sodium Chloride) 500 mls @ 333.3 mls/hr IV Q24H [facility] Lisinopril (Zestril) 10 mg PO QDAY [facility] Memantine (Namenda) 10 mg PO BID [facility] Naloxone HCl (Narcan) 0.1 mg IV Q2MIN PRN PRN Reason: Opiate Reversal Pantoprazole Sodium (Protonix) 40 mg PO QAMAC [facility] Prednisone (Prednisone) 40 mg PO QAMCC [facility] Ropinirole HCl (Requip) 4 mg PO TID [facility] Sodium Chloride (Saline Flush) 10 ml IV Q8 [facility] Vancomycin HCl (Vancomycin Per Pharmacy) 1 order IV UD [facility] Medical - PN: A/P - Time Spent With Patient Total time spent is greater than 50% in coordination of care (as documented) at patient's floor/unit and/or counseling patient: - Narrative A/P Narrative: A/P Altered Mental status/ Acute Delirum-Resolved, due to infection, this is a typical picture with infections for this gentleman, continue thiamine, switch from IV to po. Pneumonia-healthcare associated pneumonia treated with vancomycin and Zosyn. Clinically responding well not on oxygen anymore. Parkinson's disease-resume home medications Dementia-continue home dose of Namenda. Hypernatremia-resolved, tolerating oral diet well discontinue IV fluids. Nowwdcgworn-pbfmeqaygbofqj-[id number] Hypertension-patient had elevated blood pressures in the ED requiring IV blood pressure medications however since admission his blood pressure has not been an issue. Enterococcus urinary tract infection-at this time the urinalysis is extremely clear no evidence to suggest a UTI however given his past experience he may very well have an infection that is not showing up in his UA. IV vancomycin should cover for enterococcal infection. h/o CAD/ TIA- Stable continue home medications for smae h/o B cell lymphoma- last chemo 5 yrs ago. DVT hep sq Soft diet Full code Medical - PN: Qual - VTE Deep Vein Thrombosis/Pulmonary Embolism Present on Admission: No
[2018-06-03] MEDS ORDERED: CHOLESTYRAMINE/ASPARTAME 4 GM POWD.PACK PO PRN ×2 (16:15→20:00)
[2018-06-04] MEDS: IPRATROPIUM/ALBUTEROL 3 ML AMPUL.NEB NEB SCH ×4 (03:45→14:45)
[2018-06-04] MEDS: 0.9 % SODIUM CHLORIDE 10 ML SYRINGE IV SCH ×6 (05:43→11:45)
[2018-06-04] MEDS: PIPERACILLIN SODIUM/TAZOBACTAM 2.25 GM in DEXTROSE 5% IN WATER 50 ML IV SCH ×2 (05:43→11:50)
[2018-06-04 06:26] LABS: Basophils # (Auto) 0 K/mcL (0.0-0.3); Basophils % (Auto) 0 % (0.0-2.0); Eosinophils # (Auto) 0 K/mcL (0.0-0.7); Eosinophils % (Auto) 0 % (0.0-7.0); Granulocytes % (Auto) 84.9 % (38.0-78.0); Lymphocytes # (Auto) 1.3 K/mcL (1.5-4.8); Lymphocytes % (Auto) 10.5 % (15.5-49.0); Mean Corpuscular HGB Conc 32.6 g/dL (31.0-36.0); Mean Corpuscular Hemoglobin 32.9 pg (26.0-34.0); Monocytes # (Auto) 0.6 K/mcL (0.1-0.9); Monocytes % (Auto) 4.6 % (1.0-12.0); Platelet Count 197 K/mcL (140-440); RBC 3.69 M/mcL (4.50-5.90); Red Cell Distribution Width 13.8 % (11.5-14.5)
[2018-06-04 06:52] LABS: ALT/SGPT < 5 U/l (0-40); Albumin 3.6 gm/dL (3.2-5.2); Albumin/Globulin Ratio 1.2 (1.0-2.3); Alkaline Phosphatase 64 U/L (39-117); Bilirubin,Direct < 0.2 mg/dL (0.0-0.3); Blood Urea Nitrogen 32 mg/dl (8-23); Gamma Glutamyl Transpeptidase 14 U/L (8-61); Uric Acid 5.4 mg/dL (2.5-8.0)
[2018-06-04] MEDS ORDERED: PANTOPRAZOLE 40 MG TABLET PO SCH (07:30)
[2018-06-04] MEDS: CARBIDOPA/LEVODOPA 25/100 TABLET PO SCH ×3 (07:37→14:05)
[2018-06-04] MEDS ORDERED: predniSONE 20 MG TABLET PO SCH ×2 (08:00)
--- NOTE | 2018-06-04 08:41 | XRay Report ---
HISTORY: Shortness of breath and confusion FINDINGS: There are prominent increased interstitial lung markings bilaterally, most apparent in the lower central portion of the right lung. These have improved since prior exam done on 06/02/18. No lobar consolidation is present and there is no pleural effusion. The heart size appears to be within normal limits. The pulmonary vessels, best seen in the left upper lobe appear normal in caliber. IMPRESSION: Improving aeration in both lungs with residual mild generalized interstitial lung disease Interpreted and Authenticated by: Antonio Carty 06/04/18
[2018-06-04] MEDS ORDERED: FUROSEMIDE 40 MG/4 ML VIAL IV ONE (08:50)
[2018-06-04] MEDS ORDERED: CITALOPRAM 20 MG TABLET PO SCH (09:00)
[2018-06-04] MEDS: rOPINIRole 1 MG TABLET PO SCH ×2 (09:00→15:00)
[2018-06-04] MEDS ORDERED: THIAMINE 100 MG in 0.9 % SODIUM CHLORIDE 50 ML IV SCH (09:00)
[2018-06-04] MEDS ORDERED: AZITHROMYCIN 250 MG in DEXTROSE 5% IN WATER 250 ML IV SCH (09:00)
[2018-06-04] MEDS ORDERED: VANCOMYCIN 1,500 MG in 0.9 % SODIUM CHLORIDE 500 ML IV SCH (09:00)
[2018-06-04] MEDS ORDERED: LISINOPRIL 10 MG TABLET PO SCH (09:00)
[2018-06-04] MEDS ORDERED: THIAMINE 100 MG TABLET PO SCH (09:00)
[2018-06-04] MEDS ORDERED: ASPIRIN 81 MG TAB.CHEW PO SCH (09:00)
[2018-06-04] MEDS: HEPARIN 5,000 UNIT/ML VIAL SQ SCH (09:01)
[2018-06-04] MEDS: MEMANTINE 10 MG TABLET PO SCH (09:01)
--- NOTE | 2018-06-04 15:12 | Discharge Summary ---
Medical - DS: Prov Patient information: Note initiated : 06/04/18 at 3:06 pm Service Date, if different from initiated Date: [] Patient: Pop Capellan 72 y/o M admitted on 06/02/18 for confusion. Chief Complaint: [] Date of admission: 06/02/18 03:00 Discharge date: 06/04/18 Primary care physician: Lobito Do Consults: 06/01/18 Consult to Physician [CONS] Stat Comment: Consulting Provider: Shanda Orellana Reason For Exam: Physician to Consult Discharging clinician: Shanda Orellana Medical - DS: Meds - Discharge Medications Prescriptions: Albuterol Sulfate [Proventil Hfa] 6.7 gm IH Q4HP PRN #1 [id number] PRN Reason: Shortness Of Breath Levofloxacin [Levaquin] 500 mg PO DAILY #3 tab predniSONE [Prednisone] 40 mg PO QAC #4 tab Active and Home Medications: Home Medications Citalopram [Celexa] 20 mg PO DAILY 01/22/15 [History Confirmed 06/01/18 Last Taken 04/13/17 07:30] Pantoprazole [Protonix] 40 mg PO DAILY 01/22/15 [History Confirmed 06/01/18 Last Taken 04/12/17] Aspirin [Lo-Dose Aspirin EC] 81 mg PO DAILY 09/07/16 [History Confirmed Last Taken 04/12/17] clonazePAM [KlonoPIN] 0.5 mg PO ONCE 04/11/17 [History Confirmed 06/01/18 Last Taken 04/12/17] fluoxetine 20 mg tablet 20 mg PO QDAY 09/27/17 [History Confirmed 06/01/18 Last Taken Unknown] lisinopril 10 mg tablet 10 mg PO QDAY #30 tab 10/11/17 [Rx Confirmed 06/01/18 Last Taken Unknown] carbidopa 25 mg-levodopa 100 mg tablet 1 tab PO .COMPLEX tab 05/10/18 [History Confirmed 06/01/18 Last Taken Unknown] ropinirole 4 mg tablet 4 mg PO TID tab 05/10/18 [History Confirmed 06/01/18 Last Taken Unknown] Memantine [Namenda] 10 mg PO BID 06/01/18 [History Confirmed 06/01/18 Last Taken Unknown] Medical - DS: Hosp Hospital course: Mr. Capellan is a 72 year old M with history of dementia, Parkinson's disease chronic kidney disease, recurrent urinary tract infection, presents to the emergency room for altered mental status. provided most of the history. Patient was drowsy and knocked out at the time of my evaluation. According to the the patient does not be doing well since yesterday, she also noted that he was a bit short of breath a few days ago. Since yesterday the patient has been acting a bit confused, and not himself. She decided to bring him to the emergency room as in the past whenever he has been confused that has been an infection that was the cause of his confusion. Usually a urinary tract infection. The patient while agreed to be checked out when he came to the hospital became very aggressive in the parking lot. Americanization Teacher needed to be called in to bring him to the emergency room. He was extremely aggressive and belligerent. He required 6 backhaul driver to subdue him and required multiple doses of Haldol to calm him down. Blood work in the emergency room initially was negative, urine analysis was clear. The patient has had recurrent urinary tract infections with a negative or mildly positive UTI. He has had recurrent enterococcus pansensitive UTIs. The patient chest x-ray showed no focal infiltrates as per the radiology read however on our read we were concerned about a widened mediastinum. Patient had a CT scan of the chest done last night that showed infiltrates in the right upper lobe. Patient was admitted to the hospital for further management. Head CT scan done was negative for any acute process. Patient has a history of recurrent urinary tract infection, follows with Dr. Vásquez, recently treated for UTI by Dr. Teran with amoxicillin. The patient was also seen by infectious disease clinic and he was supposed to be started on a suppressive therapy he had not picked up her medications for same yet. 06/03 Patient seen and examined, overnight events reviewed. Patient is improving. Mental status is much better this morning on my evaluation he was sitting in chair cooperative reading a newspaper. Did not require any medications overnight. Hemodynamically stable. Tolerated breakfast this morning well. Moved from PCU status to telemetry status this morning. The patient also had liquid stools today C. difficile has been sent. Patient denies any acute concerns or complaints 06/04 Patient remains stable, tolerating po diet well, working well with PT, Wishes to go home Does not wish to go to PT, and will be going to outpatient OT/PT. In Summary Altered Mental status/ Acute Delirium-Resolved, due to infection, this is a typical picture with infections for this gentleman. Pneumonia-healthcare associated pneumonia treated with vancomycin and Zosyn. Responed well to treatment, Will be discharged on oral levofloxacin, Cultures are negative. Reactive Airway disease- Will discharge on 2 days of prenidsone to complete a 5 day course and albuterol inhaler. Recommend PCP consider outpatient PFT Parkinson's disease-resume home medications NO change in treatment plan. Enterococcus urinary tract infection-no e/o infection at this time, continue management as per infectious disease recommendations. Rest of the stay in the hospital was unremarkable. Discharge diagnosis: Pneumoina, Reactive airway disease - Time Spent with Patient Total time spent providing and/or coordinating discharge services: Medical - DS: Exam - Constitutional Vitals: Vital Signs Temp Pulse Pulse Resp BP Pulse Ox 06/04/18 14:45 92 H 18 06/04/18 11:35 99.8 F H 86 146/87 98 06/04/18 11:29 82 16 06/04/18 07:24 74 16 06/04/18 06:38 99.5 F H 18 145/84 98 06/04/18 06:30 98 06/04/18 04:05 98.3 F 81 24 H 148/88 96 06/04/18 00:13 99.4 F H 89 24 H 117/66 95 06/03/18 23:27 91 H 16 06/03/18 19:55 102 H 06/03/18 19:00 94 H 95 H 16 96 06/03/18 18:49 99.3 F H 89 24 H 123/71 95 06/03/18 15:48 99.6 F H 18 111/48 97 06/03/18 15:41 97 H 18 Intake and Output 06/04/18 06/04/18 06/04/18 05:59 13:59 21:59 Intake Total 150 / 150 710 / 710 740 / 740 Output Total 1974 101 / 101 Balance 149 / 149 -1265 / -1265 639 / 639 Intake: IV 50 / 50 350 / 350 500 / 500 Zithromax 250 mg In Dextrose 5% 250 / 250 in Water 250 ml @ 250 mls/hr IV Q24H [facility] Rx#:[id number] Zosyn 2.25 gm In Dextrose 5% in 50 / 50 100 / 100 Water 50 ml @ 100 mls/hr IV Q6H [facility] Rx#:[id number] Vancomycin 1,500 mg In Sodium 500 / 500 Chloride 0.9% 500 ml @ 333.3 mls/hr IV Q24H [facility] Rx#: [id number] Oral 100 / 100 360 / 360 240 / 240 Output: Void Amount 1625 / 1625 100 / 100 # of times incontinent of urine 1 Stool 350 / 350 Other: Meal Breakfast Lunch Percent of Meal Consumed 100% 75% Feeding Ability Needs Supervision Needs Supervision Urine Appearance Clear Urine Color Pale Urine Odor Normal Stool Size Moderate Large Stool Color Green Brown Stool Consistency Loose Loose # of times incontinent of 1 1 Bowels Additional comments: Constitutional; Afebrile, cooperative, alert, not in distress. Respiratory system: Air Entry equal on both sides, No crackles or wheezing, no rhonchi. CVS- Rate rhythm regular, S1,S2 heard, no gallop, no rub. Abdomen- Soft nontender abdomen, no organomegaly, no tenderness, no guarding or rigidity, [employer]RB[employer] R[employer]AL MANAGER- AOOx3, moving all extremities, no gross focal deficit noted. Medical - DS: Data Labs on day of discharge: Labs from last 24 hours 06/04/18 06/04/18 06/04/18 08:12 04:00 04:00 WBC 12.3 H RBC 3.69 L Hgb 12.1 L Hct 37.3 L MCV 101.0 H MCH 32.9 MCHC 32.6 RDW 13.8 Plt Count 197 MPV 7.4 Gran % 84.9 H Lymph % (Auto) 10.5 L [place] % (Auto) 4.6 Eos % (Auto) 0 Baso % (Auto) 0 Gran # 10.5 H Lymph # (Auto) 1.3 L [place] # (Auto) 0.6 Eos # (Auto) 0 Baso # (Auto) 0 Sodium 145 Potassium 4.0 Chloride 111 H Carbon Dioxide 23 Anion Gap 11.0 BUN 32 H Creatinine 1.7 H GFR Calculation 39 Glucose 105 Uric Acid 5.4 Calcium 8.8 Phosphorus 2.3 L Magnesium 2.3 Total Bilirubin 0.5 Direct Bilirubin < 0.2 GGT 14 AST 38 H ALT < 5 Alkaline Phosphatase 64 Lactate Dehydrogenase 232 Total Protein 6.5 Albumin 3.6 Globulin 2.9 Albumin/Globulin Ratio 1.2 Triglycerides 76 Vancomycin Trough 11.7 Medical - DS: A/P - Patient/Caregiver Discharge Instructions Activity: as per physical therapy, increase activity as tolerated Diet: Cardiac, Thickened Liquids Additional Instructions: Please follow up with outpatient physical therapy/ occupational therapy/ speech therapist of your choice. No changes have been made to your chronic home medication list please take them as prescribed by her previous provider. Go to the emergency room if shortness of breath chest pain altered mental status fever or any other acute concerning symptom. You have been prescribed a short course of steroids take 2 tablets once a day with food for 2 days. And levofloxacin which is an antibiotic 1 tablet once a day for 3 days. Use the albuterol inhaler as needed for shortness of breath - Follow up Plan Follow up with: Lobito Do ARNP [Primary Care Provider] - Disposition: Home, Self-Care Prognosis: Fair Rehab Potential: Fair I certify that the patient requires SNF services: No Overall status at discharge: patient is progressing back to baseline Medical - DS: Qual - VTE Deep Vein Thrombosis/Pulmonary Embolism Present on Admission: No
== END 2018-06-04 15:50 | disposition home or self-care (01) | DRG 194 ==
LOC: ED 20:34 → ICU 06-02 03:00
PROVIDERS: ADMIT Internal Medicine; ATTEND Internal Medicine
CPT/HCPCS: 87324; 87449; 97161; 97167; 99231; 99238; J0456; J0696; J1630; J1644; J1940; J2060; J2543; J2930; J3370; J3411; J3475; J7030; J7040; J7050; J7060; J7620; J7620-GY

== ENCOUNTER 2018-07-29 13:06 | Inpatient (IN) ==
[2018-07-29] MEDS ORDERED: FLUMAZENIL 0.1 MG/ML ML IV ONE (13:07)
[2018-07-29] MEDS ORDERED: LIDOCAINE 1% 20 ML VIAL SQ ONE (13:07)
[2018-07-29] MEDS ORDERED: NALOXONE HCL 0.4 MG/ML VIAL ONE (13:07)
[2018-07-29] MEDS ORDERED: NALOXONE HCL 0.4 MG/ML VIAL IV PRN ×3 (13:13→21:18)
[2018-07-29] MEDS ORDERED: FLUMAZENIL 0.1 MG/ML ML IV PRN ×2 (13:13→21:18)
[2018-07-29] MEDS: LACTATED RINGERS 1,000 ML IV SCH (13:17)
--- NOTE | 2018-07-29 13:19 | Emergency Department Note ---
Altered Mental Status HPI - General Chief Complaint: Altered Mental Status Stated Complaint: decreased loc Time Seen by Provider: 07/29/18 13:15 Source: family, EMS Mode of arrival: EMS Limitations: no limitations - History of Present Illness HPI Narrative: This patient has a history of Parkinson's disease with mild dementia. Over the last several hours she has become pretty much unresponsive although he does open his eyes slightly at times but he will not talk. Will not respond otherwise. He does take some sleeping pills at night. He also has some problems like this with the restless legs medicine he was taking and they cut his dose in half. I believe this was ropiranol. He has had multiple visits and admissions for pneumonia in the last couple of months. - Related Data Home Medications Medication Instructions Recorded Confirmed Citalopram [Celexa] 20 mg PO DAILY 01/22/15 07/29/18 Pantoprazole [Protonix] 40 mg PO DAILY 01/22/15 07/29/18 Aspirin [Lo-Dose Aspirin EC] 81 mg PO DAILY 09/07/16 07/29/18 clonazePAM [KlonoPIN] 0.5 mg PO ONCE 04/11/17 07/29/18 fluoxetine 20 mg tablet 20 mg PO QDAY 09/27/17 07/29/18 carbidopa 25 mg-levodopa 100 mg 1.5 tab PO .COMPLEX tab 05/10/18 07/29/18 tablet ropinirole 4 mg tablet 2 mg PO TID tab 05/10/18 07/29/18 Memantine [Namenda] 10 mg PO BID 06/01/18 07/29/18 Divalproex [Depakote Sprinkles] 250 mg PO HS 07/29/18 Previous Rx's Medication Instructions Recorded lisinopril 10 mg tablet 10 mg PO QDAY #30 tab 10/11/17 Albuterol Sulfate [Proventil Hfa] 6.7 gm IH Q4HP PRN #1 hfa.aer.ad 06/04/18 sulfamethoxazole 400 1 tab PO 3XW #50 tab 06/06/18 mg-trimethoprim 80 mg tablet furosemide 20 mg tablet 20 mg PO QDAY PRN #30 tab 07/04/18 Allergies Allergy/AdvReac Type Severity Reaction Status Date / Time shellfish derived Allergy Severe softshell Verified 06/01/18 20:40 fish, hives morphine AdvReac Intermediate HALLUCINATIONS, Verified 06/01/18 20:40 HYDROCODONE OK THOUGH Review of Systems All systems ED: reviewed and negative except as stated. Past Medical History - Past Medical History [facility] Narrative: Medical History (Last Updated 05/10/18 @ 15:48 by Tabitha Shea) Chronic kidney disease, stage 4 (severe) (Chronic) Osteoarthritis (Chronic) Muscle weakness (Chronic) Sinusitis (Chronic) Depression (Chronic) History of falling (Chronic) Cough (Chronic) Nasal congestion (Chronic) Urinary tract infection (Acute) Pneumonia (Acute) Right middle lobe pneumonia (Acute) Parkinson disease (Chronic) Confusion associated with infection (Resolved) Nephrolithiasis (Chronic) Febrile illness (Chronic) Hypernatremia (Chronic) Hypertensive renal disease (Chronic) Anemia (Chronic) CKD (chronic kidney disease), stage III (Chronic) Restless leg syndrome (Chronic) Prostate cancer (Chronic) Parkinsons disease (Chronic) Pain in joint, shoulder region (Chronic) Urinary incontinence (Chronic) MRSA (methicillin resistant Staphylococcus aureus) (Chronic) Malignant lymphoma (Chronic) Hypertension, essential (Chronic) Fracture, humerus closed (Chronic) Incisional hernia (Chronic) Gastroesophageal reflux (Chronic) Fatigue (Chronic) Diarrhea (Chronic) Chest pain (Chronic) CAD (coronary artery disease) (Chronic) Benign localized hyperplasia of prostate without urinary obstruction (Chronic) Monroy's esophagus (Chronic) Renal failure (Chronic) TIA (transient ischemic attack) (Chronic) Past Surgical History (Last Reviewed 05/09/18 @ 08:35 by Macie Barros RN) Hx of external ear surgery (Acute) Hx of brain surgery (Acute) Hx of colostomy (Acute) Hx of colectomy (Acute) Family History (Last Reviewed 05/09/18 @ 08:35 by Macie Barros RN) no family member listed Atherosclerosis of coronary artery Medical history: Reports: cancer (prostate and lymphoma), coronary artery disease, dementia, GERD, hypertension, kidney stones, renal disease, TIA, other (parkinson's disease, RLS, hernia, anemia, Barretts) Psychiatric history: Reports: no psych history Surgical history ED: Reports: cataract, colectomy, colostomy, other (brain) - Social History smoking status: Former smoker Alcohol use: Reports: None Drug use: Reports: none Physical Exam Limitations: altered mental status General appearance: obtunded Head: atraumatic, normocephalic Eye: Present: normal appearance ENT: normal exam Neck: Present: normal inspection Chest: Present: normal inspection Respiratory: Present: normal lung sounds bilaterally Cardiovascular: Present: regular rate, normal rhythm, normal heart sounds Abdominal: Present: soft, distention. Absent: tenderness, guarding, rebound, rigidity Skin: Present: warm, dry, intact Course Vital Signs Temperature 98.4 F 07/29/18 13:07 Pulse Rate 75 07/29/18 13:07 Respiratory Rate 16 07/29/18 13:07 Blood Pressure 177/105 07/29/18 13:07 Pulse Oximetry (%) 97 07/29/18 13:07 Temperature 98.9 F 07/30/18 01:00 Pulse Rate 32 L 07/30/18 05:31 Respiratory Rate 18 07/29/18 21:16 Blood Pressure 136/70 07/30/18 05:31 Pulse Oximetry (%) 92 07/30/18 05:31 Altered Mental Status - MDM Narrative Medical decision making narrative: Patient's workup really did not disclose what might specifically be causing his problem I thought his chest x-ray showed pneumonia however. I discussed the case with Dr. Orellana he will be admitted to the hospital. - Lab Data Lab results reviewed: Yes I reviewed the patient's lab results. Result diagrams: 07/30/18 04:00 07/30/18 04:00 Lab Results 07/29/18 07/29/18 07/29/18 Range/Units 13:45 13:45 13:45 WBC 6.9 (4.5-11.0) K/mcL RBC 4.31 L (4.50-5.90) M/mcL Hgb 13.8 (13.5-16.5) g/dL Hct 42.3 (41.0-55.0) % MCV 98.2 (80.0-100.0) fL MCH 32.0 (26.0-34.0) pg MCHC 32.6 (31.0-36.0) g/dL RDW 13.9 (11.5-14.5) % Plt Count 205 (140-440) K/mcL MPV 7.0 L (7.4-10.4) fL Gran % 54.1 (38.0-78.0) % Lymph % (Auto) 31.1 (15.5-49.0) % Elmore % (Auto) 8.8 (1.0-12.0) % Eos % (Auto) 5.5 (0.0-7.0) % Baso % (Auto) 0.5 (0.0-2.0) % Gran # 3.7 (1.8-8.0) K/mcL Lymph # (Auto) 2.1 (1.5-4.8) K/mcL Elmore # (Auto) 0.6 (0.1-0.9) K/mcL Eos # (Auto) 0.4 (0.0-0.7) K/mcL Baso # (Auto) 0 (0.0-0.3) K/mcL ESR VBG Lactic Acid (0.5-2.0) mmol/L Sodium 143 (133-145) mmol/L Potassium 4.8 (3.3-5.1) mmol/L Chloride 106 (96-108) mmol/L Carbon Dioxide 24 (22-30) mmol/L Anion Gap 13.0 (8-16) BUN 32 H (8-23) mg/dl Creatinine 2.0 H (0.7-1.2) mg/dl GFR Calculation 32 Glucose 82 (70-105) mg/dL Calcium 9.1 (8.6-10.4) mg/dl Total Bilirubin 0.5 (0.0-1.0) mg/dL AST 19 (0-37) U/l ALT 15 (0-40) U/l Alkaline Phosphatase 91 (39-117) U/L Ammonia (16-60) umol/L Troponin T < 0.01 (0-0.03) ng/ml C-Reactive Protein (0.0-0.8) mg/dl Total Protein 7.9 (5.9-8.4) gm/dL Albumin 4.0 (3.2-5.2) gm/dL Globulin 3.9 H (2.2-3.7) gm/dL Albumin/Globulin Ratio 1.0 (1.0-2.3) Procalcitonin (<0.10) ng/mL Urine Color Urine Appearance Urine pH (5.0-9.0) Ur Specific Bogard (1.000-1.035) Urine Protein (NEG) mg/dL Urine Glucose (UA) (NEG) mg/dL Urine Ketones (NEG) mg/dL Urine Occult Blood (<0.03) mg/dL Urine Nitrate (NEG) Urine Bilirubin (NEG) mg/dL Urine Urobilinogen (NEG) mg/dL Ur Leukocyte Esterase (NEG) /uL Ur Culture Indicated? CSF Source CSF Appearance CSF Color CSF RBC (0-1) /cumm CSF Diff Total Count CSF Total Nucleated Auto (0-5) /cumm CSF Neutrophils (0-6) % CSF Lymphocytes (40-80) % CSF Reactive Lymphs CSF Monocytes (15-45) % CSF Eosinophils % CSF Basophils CSF Macrophages CSF Plasma Cells CSF Diff Comment CSF Glucose (45-75) mg/dL CSF Total Protein (15.0-60.0) mg/dL 07/29/18 07/29/18 07/29/18 Range/Units 13:45 13:45 13:58 WBC (4.5-11.0) K/mcL RBC (4.50-5.90) M/mcL Hgb (13.5-16.5) g/dL Hct (41.0-55.0) % MCV (80.0-100.0) fL MCH (26.0-34.0) pg MCHC (31.0-36.0) g/dL RDW (11.5-14.5) % Plt Count (140-440) K/mcL MPV (7.4-10.4) fL Gran % (38.0-78.0) % Lymph % (Auto) (15.5-49.0) % Elmore % (Auto) (1.0-12.0) % Eos % (Auto) (0.0-7.0) % Baso % (Auto) (0.0-2.0) % Gran # (1.8-8.0) K/mcL Lymph # (Auto) (1.5-4.8) K/mcL Elmore # (Auto) (0.1-0.9) K/mcL Eos # (Auto) (0.0-0.7) K/mcL Baso # (Auto) (0.0-0.3) K/mcL ESR TNP VBG Lactic Acid 1.0 (0.5-2.0) mmol/L Sodium (133-145) mmol/L Potassium (3.3-5.1) mmol/L Chloride (96-108) mmol/L Carbon Dioxide (22-30) mmol/L Anion Gap (8-16) BUN (8-23) mg/dl Creatinine (0.7-1.2) mg/dl GFR Calculation Glucose (70-105) mg/dL Calcium (8.6-10.4) mg/dl Total Bilirubin (0.0-1.0) mg/dL AST (0-37) U/l ALT (0-40) U/l Alkaline Phosphatase (39-117) U/L Ammonia (16-60) umol/L Troponin T (0-0.03) ng/ml C-Reactive Protein 0.8 (0.0-0.8) mg/dl Total Protein (5.9-8.4) gm/dL Albumin (3.2-5.2) gm/dL Globulin (2.2-3.7) gm/dL Albumin/Globulin Ratio (1.0-2.3) Procalcitonin (<0.10) ng/mL Urine Color Urine Appearance Urine pH (5.0-9.0) Ur Specific Bogard (1.000-1.035) Urine Protein (NEG) mg/dL Urine Glucose (UA) (NEG) mg/dL Urine Ketones (NEG) mg/dL Urine Occult Blood (<0.03) mg/dL Urine Nitrate (NEG) Urine Bilirubin (NEG) mg/dL Urine Urobilinogen (NEG) mg/dL Ur Leukocyte Esterase (NEG) /uL Ur Culture Indicated? CSF Source CSF Appearance CSF Color CSF RBC (0-1) /cumm CSF Diff Total Count CSF Total Nucleated Auto (0-5) /cumm CSF Neutrophils (0-6) % CSF Lymphocytes (40-80) % CSF Reactive Lymphs CSF Monocytes (15-45) % CSF Eosinophils % CSF Basophils CSF Macrophages CSF Plasma Cells CSF Diff Comment CSF Glucose (45-75) mg/dL CSF Total Protein (15.0-60.0) mg/dL 07/29/18 07/29/18 07/29/18 Range/Units 15:31 18:33 19:25 WBC (4.5-11.0) K/mcL RBC (4.50-5.90) M/mcL Hgb (13.5-16.5) g/dL Hct (41.0-55.0) % MCV (80.0-100.0) fL MCH (26.0-34.0) pg MCHC (31.0-36.0) g/dL RDW (11.5-14.5) % Plt Count (140-440) K/mcL MPV (7.4-10.4) fL Gran % (38.0-78.0) % Lymph % (Auto) (15.5-49.0) % Elmore % (Auto) (1.0-12.0) % Eos % (Auto) (0.0-7.0) % Baso % (Auto) (0.0-2.0) % Gran # (1.8-8.0) K/mcL Lymph # (Auto) (1.5-4.8) K/mcL Elmore # (Auto) (0.1-0.9) K/mcL Eos # (Auto) (0.0-0.7) K/mcL Baso # (Auto) (0.0-0.3) K/mcL ESR VBG Lactic Acid (0.5-2.0) mmol/L Sodium (133-145) mmol/L Potassium (3.3-5.1) mmol/L Chloride (96-108) mmol/L Carbon Dioxide (22-30) mmol/L Anion Gap (8-16) BUN (8-23) mg/dl Creatinine (0.7-1.2) mg/dl GFR Calculation Glucose (70-105) mg/dL Calcium (8.6-10.4) mg/dl Total Bilirubin (0.0-1.0) mg/dL AST (0-37) U/l ALT (0-40) U/l Alkaline Phosphatase (39-117) U/L Ammonia 46 (16-60) umol/L Troponin T (0-0.03) ng/ml C-Reactive Protein (0.0-0.8) mg/dl Total Protein (5.9-8.4) gm/dL Albumin (3.2-5.2) gm/dL Globulin (2.2-3.7) gm/dL Albumin/Globulin Ratio (1.0-2.3) Procalcitonin < 0.05 (<0.10) ng/mL Urine Color Yellow Urine Appearance Clear Urine pH 6.0 (5.0-9.0) Ur Specific Bogard 1.017 (1.000-1.035) Urine Protein Neg (NEG) mg/dL Urine Glucose (UA) Negative (NEG) mg/dL Urine Ketones Neg (NEG) mg/dL Urine Occult Blood Neg (<0.03) mg/dL Urine Nitrate Neg (NEG) Urine Bilirubin Neg (NEG) mg/dL Urine Urobilinogen Neg (NEG) mg/dL Ur Leukocyte Esterase Neg (NEG) /uL Ur Culture Indicated? No CSF Source CSF Appearance CSF Color CSF RBC (0-1) /cumm CSF Diff Total Count CSF Total Nucleated Auto (0-5) /cumm CSF Neutrophils (0-6) % CSF Lymphocytes (40-80) % CSF Reactive Lymphs CSF Monocytes (15-45) % CSF Eosinophils % CSF Basophils CSF Macrophages CSF Plasma Cells CSF Diff Comment CSF Glucose (45-75) mg/dL CSF Total Protein (15.0-60.0) mg/dL 07/29/18 07/29/18 Range/Units 19:45 20:40 WBC (4.5-11.0) K/mcL RBC (4.50-5.90) M/mcL Hgb (13.5-16.5) g/dL Hct (41.0-55.0) % MCV (80.0-100.0) fL MCH (26.0-34.0) pg MCHC (31.0-36.0) g/dL RDW (11.5-14.5) % Plt Count (140-440) K/mcL MPV (7.4-10.4) fL Gran % (38.0-78.0) % Lymph % (Auto) (15.5-49.0) % Elmore % (Auto) (1.0-12.0) % Eos % (Auto) (0.0-7.0) % Baso % (Auto) (0.0-2.0) % Gran # (1.8-8.0) K/mcL Lymph # (Auto) (1.5-4.8) K/mcL Elmore # (Auto) (0.1-0.9) K/mcL Eos # (Auto) (0.0-0.7) K/mcL Baso # (Auto) (0.0-0.3) K/mcL ESR 33 H VBG Lactic Acid (0.5-2.0) mmol/L Sodium (133-145) mmol/L Potassium (3.3-5.1) mmol/L Chloride (96-108) mmol/L Carbon Dioxide (22-30) mmol/L Anion Gap (8-16) BUN (8-23) mg/dl Creatinine (0.7-1.2) mg/dl GFR Calculation Glucose (70-105) mg/dL Calcium (8.6-10.4) mg/dl Total Bilirubin (0.0-1.0) mg/dL AST (0-37) U/l ALT (0-40) U/l Alkaline Phosphatase (39-117) U/L Ammonia (16-60) umol/L Troponin T (0-0.03) ng/ml C-Reactive Protein (0.0-0.8) mg/dl Total Protein (5.9-8.4) gm/dL Albumin (3.2-5.2) gm/dL Globulin (2.2-3.7) gm/dL Albumin/Globulin Ratio (1.0-2.3) Procalcitonin (<0.10) ng/mL Urine Color Urine Appearance Urine pH (5.0-9.0) Ur Specific Bogard (1.000-1.035) Urine Protein (NEG) mg/dL Urine Glucose (UA) (NEG) mg/dL Urine Ketones (NEG) mg/dL Urine Occult Blood (<0.03) mg/dL Urine Nitrate (NEG) Urine Bilirubin (NEG) mg/dL Urine Urobilinogen (NEG) mg/dL Ur Leukocyte Esterase (NEG) /uL Ur Culture Indicated? CSF Source Tube #1 CSF Appearance Clear CSF Color Colorless CSF RBC 88 H (0-1) /cumm CSF Diff Total Count 73 CSF Total Nucleated Auto 9 H (0-5) /cumm CSF Neutrophils 4 (0-6) % CSF Lymphocytes 84 H (40-80) % CSF Reactive Lymphs Not Reportable CSF Monocytes 12 L (15-45) % CSF Eosinophils % Not Reportable CSF Basophils Not Reportable CSF Macrophages Not Reportable CSF Plasma Cells Not Reportable CSF Diff Comment Not Reportable CSF Glucose 48 (45-75) mg/dL CSF Total Protein 49 (15.0-60.0) mg/dL - Radiology Data Radiology results reviewed: Yes I reviewed the patient's radiology results. Disposition Pt seen by TAKER OFF/PA only: No Clinical Impression: Dementia Altered mental status Qualifiers: Altered mental status type: disorientation Qualified Code(s): R41.0 - Disorientation, unspecified Right middle lobe pneumonia Qualifiers: Pneumonia type: due to unspecified organism Qualified Code(s): J18.9 - Pneumonia, unspecified organism Disposition: Xfer As Inpt ([facility]) Condition: Fair
[2018-07-29] MEDS ORDERED: LEVOFLOXACIN 750 MG/150 ML BAG IV ONE (13:54)
[2018-07-29] MEDS ORDERED: metroNIDAZOLE 500 MG/100 ML BAG IV ONE (13:54)
[2018-07-29] MEDS ORDERED: cefTRIAXone 1 GM VIAL IV ONE (13:54)
[2018-07-29 14:28] LABS: Basophils # (Auto) 0 K/mcL (0.0-0.3); Basophils % (Auto) 0.5 % (0.0-2.0); Eosinophils # (Auto) 0.4 K/mcL (0.0-0.7); Eosinophils % (Auto) 5.5 % (0.0-7.0); Granulocytes % (Auto) 54.1 % (38.0-78.0); Lymphocytes # (Auto) 2.1 K/mcL (1.5-4.8); Lymphocytes % (Auto) 31.1 % (15.5-49.0); Mean Cell Volume 98.2 fL (80.0-100.0); Mean Corpuscular HGB Conc 32.6 g/dL (31.0-36.0); Monocytes # (Auto) 0.6 K/mcL (0.1-0.9); Monocytes % (Auto) 8.8 % (1.0-12.0); Platelet Count 205 K/mcL (140-440); RBC 4.31 M/mcL (4.50-5.90); Red Cell Distribution Width 13.9 % (11.5-14.5)
[2018-07-29 14:48] LABS: ALT/SGPT 15 U/l (0-40); Alkaline Phosphatase 91 U/L (39-117); Blood Urea Nitrogen 32 mg/dl (8-23)
[2018-07-29 16:11] LABS: Appearance,Urine CLEAR; Bilirubin,Urine NEG (NEG); Color,Urine YELLOW; Glucose,Urine (UA) NEGATIVE (NEG); Leukocyte Esterase,Urine NEG /uL (NEG); Protein,Urine NEG (NEG); Specific Gravity,Urine 1.017 (1.000-1.035); Urine Blood NEG mg/dL (<0.03); Urobilinogen,Urine NEG (NEG)
--- NOTE | 2018-07-29 17:31 | Cat Scan Report ---
CLINICAL INFORMATION: Decreased level consciousness COMPARISON: 01/23/2015 TECHNIQUE: 2.5 mm helical slices were obtained in the skull base to vertex. Following reconstruction, axial reformatted images were reviewed at bone and parenchymal windows. The exam was performed using radiation dose optimization techniques including, but not limited to, automated exposure control, adjustment of the mA and/or kV according to patient size and use of iterative reconstruction technique. FINDINGS: The ventricles, sulci, fissures, and cisterns are symmetrically enlarged compatible with mild age-related atrophy - no subdural hemorrhage or other extra-axial fluid collections appreciated. Bilateral thalamic stimulator electrodes with lead wires extending superiorly anteriorly through bifrontal craniotomies seen as before. No evidence of wire breakage. Mild patchy chronic ischemic changes in the deep cerebral white matter - expected for age. There is no intracerebral hemorrhage, mass effect or edema. Bone windows show no osseous abnormalities. IMPRESSION: Mild atrophy and chronic ischemic changes seizure] as expected for age. No change from 2014 CT Interpreted and Authenticated by: Son Navarro 07/29/18
--- NOTE | 2018-07-29 17:34 | XRay Report ---
CLINICAL INFORMATION: recent pneumonia COMPARISON: 07/02/2018 and 02/03/2009 plain film FINDINGS: Moderate cardiomegaly is unchanged. Mediastinum is grossly normal. Pulmonary vessels are now mildly distended and there is mild interstitial edema in the perihilar regions which is new. Mild scarring in the right infrahilar region demonstrates long-term stability. Small right pleural effusion noted IMPRESSION: Mild CHF. Interpreted and Authenticated by: Son Navarro 07/29/18
--- NOTE | 2018-07-29 18:42 | Cat Scan Report ---
CLINICAL INFORMATION: Infection COMPARISON: Abdomen and pelvic CT 11/24/2009. TECHNIQUE: Enteric contrast was utilized. 0.625 mm helical slices were obtained from the lung apices through the subtrochanteric regions of the femurs. Following reconstruction, 2.5 mm sagittal, coronal and axial reformatted images were processed and reviewed at multiple windows and levels. 7 mm MIP reconstructions were obtained through the lungs to optimize nodule detection.The exam was performed using radiation dose optimization techniques including, but not limited to, automated exposure control, adjustment of the mA and/or kV according to patient size and use of iterative reconstruction technique. FINDINGS: Exam is moderately limited by patient inability to remain motionless including suspending reading. Mild peribronchial vascular and interstitial edema is compatible CHF. The pulmonary vessels are also mildly distended. Small right pleural effusion noted. There is focal atelectasis or scarring in the paramediastinal right middle lobe and lingula. No allan infiltrate Mediastinal windows show the heart is mildly enlarged with scattered calcific plaque in the coronary arteries and calcification in the mitral annulus. Noncontrast thoracic aorta and pulmonary arteries are normal in contour and caliber. There is no adenopathy in the mediastinal hilar or axillary regions. The esophagus is normal. Thyroid is normal. Images through the abdomen the noncontrasted liver is unremarkable. A solitary 20 mm stone in the gallbladder is unchanged: The gallbladder is otherwise normal with normal wall and no pericholecystic fluid.. Intrahepatic and extrahepatic ducts are normal: CBD is 5 mm there is moderate pancreatic atrophy. Scattered scarring present in the parenchyma of both kidneys. A 4 cm cyst with wall calcification in the inferior pole the right kidney is stable from [address] Scattered small nonobstructing stones in the calyces of both kidneys, ranging up to 3 mm, seen as before. No evidence of hydronephrosis to suggest obstructing stone. The adrenal glands are unremarkable. Stomach, small and large bowel are normal. The appendix is not identified presumably surgically absent Imaging of the pelvis shows Camp catheter properly positioned in the urinary bladder with complete bladder decompression - no gross bladder abnormalities. Prostate and seminal vesicles are normal. Bone windows show moderate degenerative change in both SI and hip joints. Moderate T12 compression fracture is new from the 2010 CT. The chronicity is unknown. No other osseous abnormality. IMPRESSION: 1. No source for infection identified within the chest abdomen or pelvis 2. Mild CHF 3. Solitary 2 cm stone in the gallbladder. Gallbladder and bile ducts are, otherwise, normal. 4. Scattered small nonobstructing stones in calyces of both kidneys. No evidence of obstructing stone or hydronephrosis 5. Moderate pancreatic atrophy - worsening since 2010 CT 6. Sigmoid diverticulosis, but no evidence of diverticulitis. 7. Moderate T12 compression fracture - new 2010 CT. 8. Moderate degenerative disease both hips progressing Interpreted and Authenticated by: Son Navarro 07/29/18
--- NOTE | 2018-07-29 20:16 | Internal Med History&Physical ---
Medical - H&P: HPI Patient information: Note initiated : 07/29/18 at 8:13 pm Service Date, if different from initiated Date: [] Patient: Pop Capellan a 73 y/o M admitted on for decreased loc. Chief Complaint: [] History of present illness: Mr. Capellan is a 73 year old M with h/o dementia, presents to the hospital today with decreased level of consciousness. The patient was accompanied by family, history by chart review and taking to family at bed side, daughter and grand daughter. I have also taken care of this patient in the past. The patient was near normal yesterday, some slurring of speech, but was drowsy yesterday evening.This morning he was very drowsy and not waking up. Given the change in status patient was brought to the hospital for further evaluation The patient does have a history of becoming altered with infections, in the ER the patient on presentation was afebrile with stable hemodynamics, labs reviewed, normal wbc, baseline renal function. Patient initial impression was possible pneumonia, but cxr was negative, mild chf. CT chest abdo pelvis showed gall stone but no e/o infection, ua was negative,. ammonia negative, CT head is negative Patient was admitted to the hospital for further evaluation. Pt had somewhat improved mental status and low grade fever at the time of admission. CRP tested was negative. ABG neg During my eval the patient was awake, non verbal tried to follow some commands, very weak in all four extremities, neuroexam was not possible, pupils were equal. Plan was to admit to tele, LP planned before admission, IV abx given in ER, ROS unobtainable: due to mental status Medical - H&P: PMH Medical history: Medical History (Last Updated 05/10/18 @ 15:48 by Tabitha Shea) Chronic kidney disease, stage 4 (severe) (Chronic) Osteoarthritis (Chronic) Muscle weakness (Chronic) Sinusitis (Chronic) Depression (Chronic) History of falling (Chronic) Cough (Chronic) Nasal congestion (Chronic) Urinary tract infection (Acute) Pneumonia (Acute) Right middle lobe pneumonia (Acute) Parkinson disease (Chronic) Confusion associated with infection (Resolved) Nephrolithiasis (Chronic) Febrile illness (Chronic) Hypernatremia (Chronic) Hypertensive renal disease (Chronic) Anemia (Chronic) CKD (chronic kidney disease), stage III (Chronic) Restless leg syndrome (Chronic) Prostate cancer (Chronic) Parkinsons disease (Chronic) Pain in joint, shoulder region (Chronic) Urinary incontinence (Chronic) MRSA (methicillin resistant Staphylococcus aureus) (Chronic) Malignant lymphoma (Chronic) Hypertension, essential (Chronic) Fracture, humerus closed (Chronic) Incisional hernia (Chronic) Gastroesophageal reflux (Chronic) Fatigue (Chronic) Diarrhea (Chronic) Chest pain (Chronic) CAD (coronary artery disease) (Chronic) Benign localized hyperplasia of prostate without urinary obstruction (Chronic) Monroy's esophagus (Chronic) Renal failure (Chronic) TIA (transient ischemic attack) (Chronic) Surgical history: Past Surgical History (Last Reviewed 05/09/18 @ 08:35 by Macie Barros RN) Hx of external ear surgery (Acute) Hx of brain surgery (Acute) Hx of colostomy (Acute) Hx of colectomy (Acute) Pertinent family history: Family History (Last Reviewed 05/09/18 @ 08:35 by Macie Barros RN) no family member listed Atherosclerosis of coronary artery Medical - H&P: Meds Home Medications Medication Instructions Recorded Confirmed Type Citalopram [Celexa] 20 mg PO DAILY 01/22/15 07/29/18 History Pantoprazole [Protonix] 40 mg PO DAILY 01/22/15 07/29/18 History Aspirin [Lo-Dose Aspirin EC] 81 mg PO DAILY 09/07/16 07/29/18 History clonazePAM [KlonoPIN] 0.5 mg PO ONCE 04/11/17 07/29/18 History fluoxetine 20 mg tablet 20 mg PO QDAY 09/27/17 07/29/18 History lisinopril 10 mg tablet 10 mg PO QDAY #30 tab 10/11/17 07/29/18 Rx carbidopa 25 mg-levodopa 100 mg 1.5 tab PO .COMPLEX tab 05/10/18 07/29/18 History tablet ropinirole 4 mg tablet 2 mg PO TID tab 05/10/18 07/29/18 History Memantine [Namenda] 10 mg PO BID 06/01/18 07/29/18 History Albuterol Sulfate [Proventil Hfa] 6.7 gm IH Q4HP PRN #1 hfa.aer.ad 06/04/18 07/29/18 Rx sulfamethoxazole 400 1 tab PO 3XW #50 tab 06/06/18 07/29/18 Rx mg-trimethoprim 80 mg tablet furosemide 20 mg tablet 20 mg PO QDAY PRN #30 tab 07/04/18 07/29/18 Rx Divalproex [Depakote Sprinkles] 250 mg PO HS 07/29/18 07/29/18 History Allergies Allergy/AdvReac Type Severity Reaction Status Date / Time shellfish derived Allergy Severe softshell Verified 06/01/18 20:40 fish, hives morphine AdvReac Intermediate HALLUCINATIONS, Verified 06/01/18 20:40 HYDROCODONE OK THOUGH Medical - H&P: Exam - Constitutional Vitals: Temp Pulse Resp BP Pulse Ox 98.4 F 87 18 123/71 94 07/29/18 13:07 07/29/18 19:32 07/29/18 19:32 07/29/18 19:32 07/29/18 19:32 Exam: GENERAL: The patient is a well-developed, well-nourished in no apparent distress. is awake, tries to follow commands, non verbal VITAL SIGNS: Reviewed and as noted elsewhere. HEENT: Head is normocephalic and atraumatic. Extraocular muscles are intact. Pupils are equal, round, and reactive to light. Nares appeared normal. Mouth appears any without lesions. Mucous membranes are moist. NECK: Normal to inspection, Supple, No lymphadenopathy or thyromegaly. LUNGS: Air entry equal on both sides, no wheezing, crackles or rhonchi noted. No accessory muscles of respiration HEART: Regular rate and rhythm normal, S1 and S2 heard, no Gallop, S3 or Rub Noted, No Gross murmur heard. ABDOMEN: Soft, nontender, and nondistended. Positive bowel sounds. No hepatosplenomegaly was noted. EXTREMITIES: No cyanosis, clubbing, rash, lesions. edema + NEUROLOGIC: Cranial nerves II through XII are grossly intact. overall weak in all 4 limbs, tries to follow commands, stength 1/5, non verbal PSYCHIATRIC: confused. SKIN: No ulceration or wounds noted, No jaundice, No rash noted. Medical - H&P: Reslt - Labs CBC & Chem 7: 07/29/18 13:45 07/29/18 13:45 Labs: Short CBC 07/29/18 Range/Units 13:45 WBC 6.9 (4.5-11.0) K/mcL Hgb 13.8 (13.5-16.5) g/dL Hct 42.3 (41.0-55.0) % Plt Count 205 (140-440) K/mcL BMP 07/29/18 13:45 Sodium 143 Potassium 4.8 Chloride 106 Carbon Dioxide 24 BUN 32 H Creatinine 2.0 H Glucose 82 Calcium 9.1 Cardiac Enzymes 07/29/18 Range/Units 13:45 Troponin T < 0.01 (0-0.03) ng/ml Liver Function 07/29/18 Range/Units 13:45 Total Bilirubin 0.5 (0.0-1.0) mg/dL AST 19 (0-37) U/l ALT 15 (0-40) U/l Alkaline Phosphatase 91 (39-117) U/L Albumin 4.0 (3.2-5.2) gm/dL Urine 07/29/18 Range/Units 15:31 Urine Color Yellow Urine Appearance Clear Urine pH 6.0 (5.0-9.0) Ur Specific [place] 1.017 (1.000-1.035) Urine Protein Neg (NEG) mg/dL Urine Glucose (UA) Negative (NEG) mg/dL Medical - H&P: A/P - Narrative A/P Narrative: A/P Altered mental status -Etiology uncertain, CVA/TIA? , head ct is neg, no e/o infectious process, LP pending, cover with broad spectrum abx given h/o AMS in past with infections. Patient has h/o very aggressive behavior in past, will use Zyprexa if needed. check viral resp panel. Pt did not respond to flumazenil or narcan in ER. 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
[2018-07-29] MEDS ORDERED: OLANZapine 10 MG VIAL IM PRN (21:18)
[2018-07-29] MEDS ORDERED: VANCOMYCIN 1,000 MG in 0.9 % SODIUM CHLORIDE 250 ML IV ONE (21:18)
[2018-07-29] MEDS ORDERED: VANCOMYCIN PER PHARMACY IV ONE (21:18)
[2018-07-29] MEDS ORDERED: ACETAMINOPHEN 325 MG TABLET PO PRN (21:18)
[2018-07-29] MEDS ORDERED: FUROSEMIDE 40 MG/4 ML VIAL IV ONE (21:18)
[2018-07-29] MEDS ORDERED: hydrALAZINE 20 MG/ML VIAL IV PRN (21:45)
[2018-07-29] MEDS: 0.9 % SODIUM CHLORIDE 10 ML SYRINGE IV SCH (22:15)
[2018-07-29 22:34] LABS: Glucose,CSF 48 mg/dL (45-75)
[2018-07-29] MEDS: PIPERACILLIN SODIUM/TAZOBACTAM 3.375 GM in DEXTROSE 5% IN WATER 50 ML IV SCH (22:37)
[2018-07-29] MEDS: HEPARIN 5,000 UNIT/ML VIAL SQ SCH (22:56)
[2018-07-29] MEDS: CARBIDOPA/LEVODOPA 25/100 TABLET PO SCH (22:57)
[2018-07-29] MEDS: MEMANTINE 10 MG TABLET PO SCH (22:57)
[2018-07-29 23:10] LABS: Appearance,CSF CLEAR; Lymphocytes,CSF 84 % (40-80); Monocytes,CSF 12 % (15-45); Neutrophils,CSF 4 % (0-6); Nucleated Cells,CSF 9 /cumm (0-5); Red Blood Cell,CSF 88 /cumm (0-1); Total Cell Ct,CSF 73
[2018-07-30] MEDS: LACTATED RINGERS 1,000 ML IV SCH ×2 (01:24→01:25)
[2018-07-30] MEDS ORDERED: 0.9 % SODIUM CHLORIDE 500 ML IV PRN ×2 (02:53→15:34)
[2018-07-30] MEDS: PIPERACILLIN SODIUM/TAZOBACTAM 3.375 GM in DEXTROSE 5% IN WATER 50 ML IV SCH ×3 (05:51→21:30)
[2018-07-30] MEDS: 0.9 % SODIUM CHLORIDE 10 ML SYRINGE IV SCH ×3 (05:51→21:30)
[2018-07-30] MEDS ORDERED: VANCOMYCIN PER PHARMACY IV SCH ×2 (06:15→15:34)
[2018-07-30 06:20] LABS: Basophils # (Auto) 0 K/mcL (0.0-0.3); Basophils % (Auto) 0.5 % (0.0-2.0); Eosinophils # (Auto) 0.3 K/mcL (0.0-0.7); Eosinophils % (Auto) 4.4 % (0.0-7.0); Granulocytes % (Auto) 61.6 % (38.0-78.0); Lymphocytes # (Auto) 1.7 K/mcL (1.5-4.8); Lymphocytes % (Auto) 24.9 % (15.5-49.0); Mean Cell Volume 97.9 fL (80.0-100.0); Mean Corpuscular HGB Conc 32.5 g/dL (31.0-36.0); Monocytes # (Auto) 0.6 K/mcL (0.1-0.9); Monocytes % (Auto) 8.6 % (1.0-12.0); Platelet Count 200 K/mcL (140-440); RBC 4.05 M/mcL (4.50-5.90); Red Cell Distribution Width 13.9 % (11.5-14.5)
[2018-07-30 06:53] LABS: ALT/SGPT < 5 U/l (0-40); Albumin 3.5 gm/dL (3.2-5.2); Alkaline Phosphatase 85 U/L (39-117); Bilirubin,Direct < 0.2 mg/dL (0.0-0.3); Blood Urea Nitrogen 28 mg/dl (8-23); Gamma Glutamyl Transpeptidase 18 U/L (8-61); Uric Acid 7.6 mg/dL (2.5-8.0)
[2018-07-30] MEDS ORDERED: PANTOPRAZOLE 40 MG TABLET PO SCH (07:30)
[2018-07-30] MEDS: HEPARIN 5,000 UNIT/ML VIAL SQ SCH ×2 (08:21→21:29)
[2018-07-30] MEDS: MEMANTINE 10 MG TABLET PO SCH ×2 (08:21→21:29)
[2018-07-30] MEDS: CARBIDOPA/LEVODOPA 25/100 TABLET PO SCH ×2 (08:21→21:29)
--- NOTE | 2018-07-30 08:56 | XRay Report ---
CLINICAL INFORMATION: COMPARISON: None. TECHNIQUE: Under fluoroscopic guidance, the L2-3 intralaminar space was marked, prepped and locally anesthetized with 1% Lidocaine using a 25 gauge needle. An attempt to place a 22 gauge spinal needle, under fluoroscopic guidance, through the interlaminar space at both the L2-3 and L1-2 levels was unsuccessful due to heavy degenerative bone production obliterating the interlaminar space. This necessitated needle placement through the left L4-5 interlaminar space. This was successfully but yielded only 2 cc of clear CSF. The fluid was sent to pathology for requested studies. There was no apparent complication. The patient tolerated procedure well. IMPRESSION: Successful fluoroscopic guided lumbar puncture. Unfortunately, only 2 cc of clear CSF could be aspirated No apparent complications. Interpreted and Authenticated by: Son Navarro 07/30/18
[2018-07-30] MEDS ORDERED: FLUoxetine HCL 20 MG CAPSULE PO SCH (09:00)
[2018-07-30] MEDS ORDERED: VANCOMYCIN 1,500 MG in 0.9 % SODIUM CHLORIDE 500 ML IV SCH (09:00)
[2018-07-30] MEDS ORDERED: ASPIRIN 81 MG TAB.CHEW PO SCH (09:00)
[2018-07-30] MEDS ORDERED: CITALOPRAM 20 MG TABLET PO SCH (09:00)
[2018-07-30] MEDS ORDERED: LISINOPRIL 10 MG TABLET PO SCH (09:00)
--- NOTE | 2018-07-30 13:00 | Internal Med Progress Note ---
Medical - PN: Subj Patient information: Note initiated : 07/30/18 at 12:57 pm Service Date, if different from initiated Date: [] Patient: Pop Caepllan a 73 y/o M admitted on 07/29/18 for decreased loc. Chief Complaint: [] Interval history: Mr. Capellan is a 73 year old M with h/o dementia, presents to the hospital today with decreased level of consciousness. The patient was accompanied by family, history by chart review and taking to family at bed side, daughter and grand daughter. I have also taken care of this patient in the past. The patient was near normal yesterday, some slurring of speech, but was drowsy yesterday evening.This morning he was very drowsy and not waking up. Given the change in status patient was brought to the hospital for further evaluation The patient does have a history of becoming altered with infections, in the ER the patient on presentation was afebrile with stable hemodynamics, labs reviewed, normal wbc, baseline renal function. Patient initial impression was possible pneumonia, but cxr was negative, mild chf. CT chest abdo pelvis showed gall stone but no e/o infection, ua was negative,. ammonia negative, CT head is negative Patient was admitted to the hospital for further evaluation. Pt had somewhat improved mental status and low grade fever at the time of admission. CRP tested was negative. ABG neg During my eval the patient was awake, non verbal tried to follow some commands, very weak in all four extremities, neuroexam was not possible, pupils were equal. Plan was to admit to tele, LP planned before admission, IV abx given in ER, 07/30 Pt seen examined, this AM doing a bit better, mental status clearer, able to speak and take his meds, history reviewed with patients , who notes that over the last couple of weeks the patient had been agitated, and a bit high. He was started on divalproex 750 nightly, trazodone 50-200 mg nightly clonazepam. The patient is also on fluoxetine and citalopram. He takes ropinirole 4 mg 3 times a day levodopa carbidopa 1-1/2 pills in the morning 1 in office in the afternoon and 1 pill in the evening. There is a concern that he is getting overmedicated and I feel this is most likely the etiology of the patient's symptoms. Cut back on medications, discontinue valproic acid, discontinue trazodone, discontinue clonazepam, discontinue citalopram. Cut back on the dose of ropinirole to 2 mg 3 times a day. Cut back on the dose of levodopa to 1 pill 3 times a day and monitor. Workup is negative for any infectious etiology so far. Blood cultures are negative at 48 hours we discontinue antibiotics Pertinent ROS: Denies headache, dizziness Denies chest pain, palpitations Denies cough or shortness of breath Denies abdominal pain, nausea or vomiting. - Constitutional Vitals: Vital Signs Temp Pulse Resp BP Pulse Ox 98.9 F 82 18 150/80 100 07/30/18 01:00 07/30/18 07:31 07/29/18 21:16 07/30/18 11:01 07/30/18 07:31 Period Temp Pulse Resp BP Sys/Howe Pulse Ox Last 24 Hr 98.4 F-100.6 F 25-96 13-30 77-198/44-175 84-100 Intake and Output 07/29/18 07/30/18 07/30/18 21:59 05:59 13:59 Intake Total 1250 / 1930 680 / 1930 50 / 50 Output Total 2200 / 2200 Balance 1250 / -270 -1520 / -270 50 / 50 Weight 192 lb 14.4 oz Intake & Output: Intake & Output 07/29/18 07/30/18 07/30/18 21:59 05:59 13:59 Intake Total 1250 / 1930 680 / 1930 50 / 50 Output Total 2200 / 2200 Balance 1250 / -270 -1520 / -270 50 / 50 Weight 192 lb 14.4 oz Intake: IV 1250 / 1550 300 / 1550 50 / 50 Lactated Ringers 1,000 ml @ 250 1000 / 1000 mls/hr IV .Q4H [facility] Rx#: [id number] Zosyn 3.375 gm In Dextrose 5% 50 / 50 50 / 50 in Water 50 ml @ 100 mls/hr IV Q8H [facility] Rx#:[id number] Oral 380 / 380 Output: Urine Catheter Amount 2200 / 2200 Other: Urine Appearance Clear Uretheral (Camp) Clear Urine Color Pale Uretheral (Camp) Bright Yellow Stool Size Large Stool Color Brown Stool Consistency Loose # Bowel Movements 1 # of times incontinent of 0 Bowels Exam: Constitutional; Afebrile, cooperative, alert, not in distress. Respiratory system: Air Entry equal on both sides, No crackles or wheezing, no rhonchi. CVS- Rate rhythm regular, S1,S2 heard, no gallop, no rub. 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 but still weak. Medical - PN: Obj Da - Labs CBC & Chem 7: 07/30/18 04:00 07/30/18 04:00 Labs: Abnormal Lab Results 07/30/18 07/30/18 07/29/18 04:00 04:00 20:40 RBC 4.05 L Hgb 12.9 L Hct 39.7 L MPV 7.3 L ESR BUN 28 H Creatinine 2.1 H Phosphorus 2.6 L Globulin CSF RBC 88 H CSF Total Nucleated Auto 9 H CSF Lymphocytes 84 H CSF Monocytes 12 L 07/29/18 07/29/18 07/29/18 19:45 13:45 13:45 RBC 4.31 L Hgb Hct MPV 7.0 L ESR 33 H BUN 32 H Creatinine 2.0 H Phosphorus Globulin 3.9 H CSF RBC CSF Total Nucleated Auto CSF Lymphocytes CSF Monocytes Meds: Medications Acetaminophen (Tylenol) 650 mg PO Q6HP PRN PRN Reason: PAIN/FEVER > 101 Aspirin (Aspirin) 81 mg PO DAILY [facility] Last Admin: 07/30/18 08:21 Dose: 81 mg Documented by: Carbidopa/Levodopa (Sinemet 25/100) 1 tab PO TID [facility] Flumazenil (Romazicon) 0.2 mg IV Q1MIN PRN PRN Reason: BENZODIAZEPINE REVERSAL Fluoxetine HCl (Prozac) 20 mg PO DAILY [facility] Last Admin: 07/30/18 08:21 Dose: 20 mg Documented by: Heparin Sodium (Porcine) (Heparin) 5,000 unit SQ Q12 [facility] Last Admin: 07/30/18 08:21 Dose: 5,000 unit Documented by: Hydralazine HCl (Apresoline) 10 mg IV Q8HP PRN PRN Reason: Hypertension Piperacillin Sod/Tazobactam (Sod 3.375 gm/ Dextrose) 50 mls @ 100 mls/hr IV Q8H [facility] Last Infusion: 07/30/18 06:35 Dose: Infused Documented by: Sodium Chloride (Sodium Chloride 0.9%) 500 mls @ 0 mls/hr IV PRN PRN PRN Reason: SBP < 90 x 1 Vancomycin HCl 1,500 mg/ (Sodium Chloride) 500 mls @ 333.3 mls/hr IV Q24H [facility] Last Admin: 07/30/18 09:37 Dose: 330 mls/hr Documented by: Lisinopril (Zestril) 10 mg PO QDAY [facility] Last Admin: 07/30/18 08:21 Dose: 10 mg Documented by: Memantine (Namenda) 10 mg PO BID [facility] Last Admin: 07/30/18 08:21 Dose: 10 mg Documented by: Naloxone HCl (Narcan) 0.1 mg IV Q2MIN PRN PRN Reason: Opiate Reversal Olanzapine (Zyprexa) 10 mg IM Q1HP PRN PRN Reason: Agitation Pantoprazole Sodium (Protonix) 40 mg PO ACB [facility] Last Admin: 07/30/18 07:28 Dose: 40 mg Documented by: Ropinirole HCl (Requip) 2 mg PO TID [facility] Sodium Chloride (Saline Flush) 10 ml IV Q8 [facility] Last Admin: 07/30/18 05:51 Dose: 10 ml Documented by: Vancomycin HCl (Vancomycin Per Pharmacy) 1 order IV UD [facility] Medical - PN: A/P - Time Spent With Patient Total time spent is greater than 50% in coordination of care (as documented) at patient's floor/unit and/or counseling patient: - Narrative A/P Narrative: A/P Altered mental status -Etiology uncertain, CVA/TIA? , Workup for infectious etiology is negative, once cultures are negative at 48 hours will discontinue antibiotics. She is clinically improving. Likely etiology at this point in time seems to be medication related. d/c clonazepam, trazosone, divalproex. Mild CHF - on tele, Iv lasix, monitor. Parkinson - has brain stimulators in place, resume home meds on lower dose, Depression -on citalopram and fluoxetine, will d/c citalopram as this is a double dosing. HTN/HLD - resume home meds CKD -follows with nephrology, renal function at baseline Dementia - resume home meds when able, high risk for delirium CAD -stable, trop neg, ekg neg, resume home meds once able, Diet NPO Full code DVT hep sq Medical - PN: Qual - VTE Deep Vein Thrombosis/Pulmonary Embolism Present on Admission: No
[2018-07-30] MEDS ORDERED: CARBIDOPA/LEVODOPA 25/100 TABLET PO SCH (15:00)
[2018-07-30] MEDS ORDERED: NALOXONE HCL 0.4 MG/ML VIAL IV PRN (15:34)
[2018-07-30] MEDS ORDERED: hydrALAZINE 20 MG/ML VIAL IV PRN (15:34)
[2018-07-30] MEDS ORDERED: FLUMAZENIL 0.1 MG/ML ML IV PRN (15:34)
[2018-07-30] MEDS ORDERED: OLANZapine 10 MG VIAL IM PRN (15:34)
[2018-07-30] MEDS ORDERED: ACETAMINOPHEN 325 MG TABLET PO PRN (15:34)
[2018-07-30] MEDS ORDERED: rOPINIRole 1 MG TABLET PO SCH (21:00)
[2018-07-30] MEDS: rOPINIRole 1 MG TABLET PO SCH (21:28)
[2018-07-31 05:46] LABS: Basophils # (Auto) 0 K/mcL (0.0-0.3); Basophils % (Auto) 0.4 % (0.0-2.0); Eosinophils # (Auto) 0.3 K/mcL (0.0-0.7); Eosinophils % (Auto) 4.4 % (0.0-7.0); Granulocytes % (Auto) 62.4 % (38.0-78.0); Lymphocytes # (Auto) 1.7 K/mcL (1.5-4.8); Lymphocytes % (Auto) 24.2 % (15.5-49.0); Mean Corpuscular HGB Conc 32.1 g/dL (31.0-36.0); Monocytes # (Auto) 0.6 K/mcL (0.1-0.9); Monocytes % (Auto) 8.6 % (1.0-12.0); Platelet Count 192 K/mcL (140-440); RBC 3.89 M/mcL (4.50-5.90); Red Cell Distribution Width 13.6 % (11.5-14.5)
[2018-07-31] MEDS: PIPERACILLIN SODIUM/TAZOBACTAM 3.375 GM in DEXTROSE 5% IN WATER 50 ML IV SCH (05:49)
[2018-07-31] MEDS: 0.9 % SODIUM CHLORIDE 10 ML SYRINGE IV SCH ×3 (05:50→21:08)
[2018-07-31 06:27] LABS: ALT/SGPT < 5 U/l (0-40); Albumin 3.3 gm/dL (3.2-5.2); Alkaline Phosphatase 74 U/L (39-117); Bilirubin,Direct < 0.2 mg/dL (0.0-0.3); Blood Urea Nitrogen 34 mg/dl (8-23); Gamma Glutamyl Transpeptidase 15 U/L (8-61); Uric Acid 6.5 mg/dL (2.5-8.0)
[2018-07-31] MEDS: PANTOPRAZOLE 40 MG TABLET PO SCH (06:56)
[2018-07-31] MEDS: rOPINIRole 1 MG TABLET PO SCH ×3 (08:11→21:07)
[2018-07-31] MEDS: MEMANTINE 10 MG TABLET PO SCH ×2 (08:12→21:07)
[2018-07-31] MEDS: FLUoxetine HCL 20 MG CAPSULE PO SCH (08:12)
[2018-07-31] MEDS: LISINOPRIL 10 MG TABLET PO SCH (08:12)
[2018-07-31] MEDS: LOPERAMIDE 2 MG CAPSULE PO PRN ×3 (08:12→21:08)
[2018-07-31] MEDS: ASPIRIN 81 MG TAB.CHEW PO SCH (08:12)
[2018-07-31] MEDS: CARBIDOPA/LEVODOPA 25/100 TABLET PO SCH ×3 (08:12→21:08)
[2018-07-31] MEDS: HEPARIN 5,000 UNIT/ML VIAL SQ SCH ×2 (08:12→21:08)
[2018-07-31] MEDS ORDERED: LACTATED RINGERS 1,000 ML IV SCH (08:15)
[2018-07-31] MEDS ORDERED: VANCOMYCIN 1,500 MG in 0.9 % SODIUM CHLORIDE 500 ML IV SCH (09:00)
--- NOTE | 2018-07-31 11:39 | Internal Med Progress Note ---
Medical - PN: Subj Patient information: Note initiated : 07/31/18 at 11:36 am Service Date, if different from initiated Date: [] Patient: Pop Capellan a 73 y/o M admitted on 07/29/18 for decreased loc. Chief Complaint: [] Interval history: Mr. Capellan is a 73 year old M with h/o dementia, presents to the hospital today with decreased level of consciousness. The patient was accompanied by family, history by chart review and taking to family at bed side, daughter and grand daughter. I have also taken care of this patient in the past. The patient was near normal yesterday, some slurring of speech, but was drowsy yesterday evening.This morning he was very drowsy and not waking up. Given the change in status patient was brought to the hospital for further evaluation The patient does have a history of becoming altered with infections, in the ER the patient on presentation was afebrile with stable hemodynamics, labs reviewed, normal wbc, baseline renal function. Patient initial impression was possible pneumonia, but cxr was negative, mild chf. CT chest abdo pelvis showed gall stone but no e/o infection, ua was negative,. ammonia negative, CT head is negative Patient was admitted to the hospital for further evaluation. Pt had somewhat improved mental status and low grade fever at the time of admission. CRP tested was negative. ABG neg During my eval the patient was awake, non verbal tried to follow some commands, very weak in all four extremities, neuroexam was not possible, pupils were equal. Plan was to admit to tele, LP planned before admission, IV abx given in ER, 07/30 Pt seen examined, this AM doing a bit better, mental status clearer, able to speak and take his meds, history reviewed with patients , who notes that over the last couple of weeks the patient had been agitated, and a bit high. He was started on divalproex 750 nightly, trazodone 50-200 mg nightly clonazepam. The patient is also on fluoxetine and citalopram. He takes ropinirole 4 mg 3 times a day levodopa carbidopa 1-1/2 pills in the morning 1 in office in the afternoon and 1 pill in the evening. There is a concern that he is getting overmedicated and I feel this is most likely the etiology of the patient's symptoms. Cut back on medications, discontinue valproic acid, discontinue trazodone, discontinue clonazepam, discontinue citalopram. Cut back on the dose of ropinirole to 2 mg 3 times a day. Cut back on the dose of levodopa to 1 pill 3 times a day and monitor. Workup is negative for any infectious etiology so far. Blood cultures are negative at 48 hours we discontinue antibiotics 07/31 Pt seen eaxmined, no acute overnight events, renal function slightly worse, pt had loose bowel movements overnight, no cdiff cultures remain neg, d/c abx clinically pt improving much improved, metnal status better, he is able to hold conversation, but still has some sluggish speech. IVF today, monitor renal function if stable can d/c in AM Pertinent ROS: Denies headache, dizziness Denies chest pain, palpitations Denies cough or shortness of breath Denies abdominal pain, nausea or vomiting. - Constitutional Vitals: Vital Signs Temp Pulse Resp BP Pulse Ox 98.2 F 63 22 127/79 95 07/31/18 07:43 07/31/18 07:43 07/31/18 07:43 07/31/18 07:43 07/31/18 07:43 Period Temp Pulse Resp BP Sys/Howe Pulse Ox Last 24 Hr 97.3 F-99.0 F 63-94 16-22 101-138/50-113 95-100 Intake and Output 07/30/18 07/31/18 07/31/18 21:59 05:59 13:59 Intake Total 800 / 900 50 / 900 500 / 500 Output Total 1600 / 0 450 / 2050 Balance -800 / -1150 -400 / -1150 500 / 500 Weight 193 lb 1.6 oz Intake & Output: Intake & Output 07/30/18 07/31/18 07/31/18 21:59 05:59 13:59 Intake Total 800 / 900 50 / 900 500 / 500 Output Total 1600 / 2050 450 / 2050 Balance -800 / -1150 -400 / -1150 500 / 500 Weight 193 lb 1.6 oz Intake: IV 50 / 100 500 / 500 Zosyn 3.375 gm In Dextrose 5% 50 / 50 in Water 50 ml @ 100 mls/hr IV Q8H [facility] Rx#:[id number] Vancomycin 1,500 mg In Sodium 500 / 500 Chloride 0.9% 500 ml @ 333.3 mls/hr IV Q24H [facility] Rx#: [id number] Oral 800 / 800 Output: Urine Catheter Amount 1600 / 0 450 / 2050 Other: Meal Dinner Percent of Meal Consumed 100% Feeding Ability Total Assistance Urine Appearance Clear Uretheral (Camp) Clear Urine Color Straw Uretheral (Camp) Bright Yellow Urine Odor Uretheral (Camp) Normal Stool Size Large Large Moderate Stool Color Yellow Yellow Brown Yellow Stool Consistency Liquid Liquid Loose # Bowel Movements 1 # of times incontinent of 1 1 Bowels Exam: Constitutional; Afebrile, cooperative, alert, not in distress. Respiratory system: Air Entry equal on both sides, No crackles or wheezing, no rhonchi. CVS- Rate rhythm regular, S1,S2 heard, no gallop, no rub. Abdomen- Soft nontender abdomen, no organomegaly, no tenderness, no guarding or rigidity, HEAD SAWYER- AOOx3, moving all extremities, no gross focal deficit noted. Medical - PN: Obj Da - Labs CBC & Chem 7: 07/31/18 03:50 07/31/18 03:50 Labs: Abnormal Lab Results 07/31/18 07/31/18 07/30/18 03:50 03:50 04:00 RBC 3.89 L Hgb 12.4 L Hct 38.5 L MPV 7.3 L ESR BUN 34 H 28 H Creatinine 2.4 H 2.1 H Phosphorus 2.6 L Globulin CSF RBC CSF Total Nucleated Auto CSF Lymphocytes CSF Monocytes 07/30/18 07/29/18 07/29/18 04:00 20:40 19:45 RBC 4.05 L Hgb 12.9 L Hct 39.7 L MPV 7.3 L ESR 33 H BUN Creatinine Phosphorus Globulin CSF RBC 88 H CSF Total Nucleated Auto 9 H CSF Lymphocytes 84 H CSF Monocytes 12 L 07/29/18 07/29/18 13:45 13:45 RBC 4.31 L Hgb Hct MPV 7.0 L ESR BUN 32 H Creatinine 2.0 H Phosphorus Globulin 3.9 H CSF RBC CSF Total Nucleated Auto CSF Lymphocytes CSF Monocytes Meds: Medications Acetaminophen (Tylenol) 650 mg PO Q6HP PRN PRN Reason: PAIN/FEVER > 101 Aspirin (Aspirin) 81 mg PO DAILY [facility] Last Admin: 07/31/18 08:12 Dose: 81 mg Documented by: Carbidopa/Levodopa (Sinemet 25/100) 1 tab PO TID [facility] Last Admin: 07/31/18 08:12 Dose: 1 tab Documented by: Flumazenil (Romazicon) 0.2 mg IV Q1MIN PRN PRN Reason: BENZODIAZEPINE REVERSAL Fluoxetine HCl (Prozac) 20 mg PO DAILY [facility] Last Admin: 07/31/18 08:12 Dose: 20 mg Documented by: Heparin Sodium (Porcine) (Heparin) 5,000 unit SQ Q12 [facility] Last Admin: 07/31/18 08:12 Dose: 5,000 unit Documented by: Hydralazine HCl (Apresoline) 10 mg IV Q8HP PRN PRN Reason: Hypertension Sodium Chloride (Sodium Chloride 0.9%) 500 mls @ 0 mls/hr IV PRN PRN PRN Reason: SBP < 90 x 1 Vancomycin HCl 1,500 mg/ (Sodium Chloride) 500 mls @ 333.3 mls/hr IV Q24H [facility] Last Infusion: 07/31/18 10:48 Dose: Infused Documented by: Lactated Ringer's (Lactated Ringers) 1,000 mls @ 150 mls/hr IV .Q6H40M [facility] Stop: 07/31/18 14:54 Last Admin: 07/31/18 08:11 Dose: 150 mls/hr Documented by: Lisinopril (Zestril) 10 mg PO QDAY [facility] Last Admin: 07/31/18 08:12 Dose: 10 mg Documented by: Loperamide HCl (Imodium) 2 mg PO PRN PRN PRN Reason: Diarrhea Last Admin: 07/31/18 08:12 Dose: 2 mg Documented by: Memantine (Namenda) 10 mg PO BID [facility] Last Admin: 07/31/18 08:12 Dose: 10 mg Documented by: Naloxone HCl (Narcan) 0.1 mg IV Q2MIN PRN PRN Reason: Opiate Reversal Olanzapine (Zyprexa) 10 mg IM Q1HP PRN PRN Reason: Agitation Pantoprazole Sodium (Protonix) 40 mg PO ACB [facility] Last Admin: 07/31/18 06:56 Dose: 40 mg Documented by: Ropinirole HCl (Requip) 2 mg PO TID [facility] Last Admin: 07/31/18 08:11 Dose: 2 mg Documented by: Sodium Chloride (Saline Flush) 10 ml IV Q8 [facility] Last Admin: 07/31/18 05:50 Dose: 10 ml Documented by: Medical - PN: A/P - Time Spent With Patient Total time spent is greater than 50% in coordination of care (as documented) at patient's floor/unit and/or counseling patient: - Narrative A/P Narrative: A/P Altered mental status -likely from meds, no e/o infection, d/c abx, Mild CHF - on tele, Iv lasix, monitor. Parkinson - has brain stimulators in place, resume home meds on lower dose, levodopa carbidopa, one pill tid, and ropinarole 2 tid Depression -on citalopram and fluoxetine, will d/c citalopram as this is a double dosing. HTN/HLD - resume home meds TIAN on CKD -follows with nephrology, renal function slightly worse, give some fluids to see how he responds. Dementia - resume home meds when able, high risk for delirium CAD -stable, trop neg, ekg neg, resume home meds once able, Diet as per ST OT/PT eval Full code DVT hep sq Medical - PN: Qual - VTE Deep Vein Thrombosis/Pulmonary Embolism Present on Admission: No
[2018-08-01 05:37] LABS: Basophils # (Auto) 0 K/mcL (0.0-0.3); Basophils % (Auto) 0.4 % (0.0-2.0); Eosinophils # (Auto) 0.4 K/mcL (0.0-0.7); Eosinophils % (Auto) 6.7 % (0.0-7.0); Granulocytes % (Auto) 58.1 % (38.0-78.0); Lymphocytes # (Auto) 1.5 K/mcL (1.5-4.8); Lymphocytes % (Auto) 26.3 % (15.5-49.0); Mean Corpuscular HGB Conc 31.9 g/dL (31.0-36.0); Monocytes # (Auto) 0.5 K/mcL (0.1-0.9); Monocytes % (Auto) 8.5 % (1.0-12.0); Platelet Count 189 K/mcL (140-440); RBC 3.98 M/mcL (4.50-5.90); Red Cell Distribution Width 13.9 % (11.5-14.5)
[2018-08-01] MEDS: 0.9 % SODIUM CHLORIDE 10 ML SYRINGE IV SCH (05:37)
[2018-08-01 06:19] LABS: ALT/SGPT < 5 U/l (0-40); Albumin 3.1 gm/dL (3.2-5.2); Albumin/Globulin Ratio 0.9 (1.0-2.3); Alkaline Phosphatase 75 U/L (39-117); Bilirubin,Direct < 0.2 mg/dL (0.0-0.3); Blood Urea Nitrogen 24 mg/dl (8-23); Gamma Glutamyl Transpeptidase 14 U/L (8-61); Uric Acid 6.5 mg/dL (2.5-8.0)
[2018-08-01] MEDS: FLUoxetine HCL 20 MG CAPSULE PO SCH (08:35)
[2018-08-01] MEDS: ASPIRIN 81 MG TAB.CHEW PO SCH (08:35)
[2018-08-01] MEDS: CARBIDOPA/LEVODOPA 25/100 TABLET PO SCH (08:35)
[2018-08-01] MEDS: rOPINIRole 1 MG TABLET PO SCH (08:35)
[2018-08-01] MEDS: PANTOPRAZOLE 40 MG TABLET PO SCH (08:35)
[2018-08-01] MEDS: LISINOPRIL 10 MG TABLET PO SCH (08:35)
[2018-08-01] MEDS: HEPARIN 5,000 UNIT/ML VIAL SQ SCH (08:35)
[2018-08-01] MEDS: MEMANTINE 10 MG TABLET PO SCH (08:35)
--- NOTE | 2018-08-01 12:44 | Discharge Summary ---
Medical - DS: Prov Patient information: Note initiated : 08/01/18 at 12:42 pm Service Date, if different from initiated Date: [] Patient: Pop Capellan 73 y/o M admitted on 07/29/18 for decreased loc. Chief Complaint: [] Date of admission: 07/29/18 21:06 Discharge date: 08/01/18 Primary care physician: Lobito Do Consults: 07/29/18 Consult to Physician [CONS] Stat Comment: Consulting Provider: Shanda Orellana Reason For Exam: Physician to Consult Discharging clinician: Shanda Orellana Medical - DS: Meds - Discharge Medications Active and Home Medications: Home Medications Citalopram [Celexa] 20 mg PO DAILY 01/22/15 [History Confirmed 07/29/18 Last Taken 04/13/17 07:30] Pantoprazole [Protonix] 40 mg PO DAILY 01/22/15 [History Confirmed 07/29/18 Last Taken 04/12/17] Aspirin [Lo-Dose Aspirin EC] 81 mg PO DAILY 09/07/16 [History Confirmed 07/29/18 Last Taken 04/12/17] clonazePAM [KlonoPIN] 0.5 mg PO ONCE 04/11/17 [History Confirmed 07/29/18 Last Taken 04/12/17] fluoxetine 20 mg tablet 20 mg PO QDAY 09/27/17 [History Confirmed 07/29/18 Last Taken Unknown] lisinopril 10 mg tablet 10 mg PO QDAY #30 tab 10/11/17 [Rx Confirmed 07/29/18 Last Taken Unknown] carbidopa 25 mg-levodopa 100 mg tablet 1.5 tab PO .COMPLEX tab 05/10/18 [History Confirmed 07/29/18 Last Taken Unknown] ropinirole 4 mg tablet 2 mg PO TID tab 05/10/18 [History Confirmed 07/29/18 Last Taken Unknown] Memantine [Namenda] 10 mg PO BID 06/01/18 [History Confirmed 07/29/18 Last Taken Unknown] sulfamethoxazole 400 mg-trimethoprim 80 mg tablet 1 tab PO 3XW #50 tab 06/06/18 [Rx Confirmed 07/31/18 Last Taken Unknown] traZODone HCL [Desyrel] 50 mg PO QHS 07/30/18 [History Confirmed 07/30/18 Last Taken 07/28/18 20:00] Medical - DS: Hosp Hospital course: Mr. Capellan is a 73 year old M with h/o dementia, presents to the hospital today with decreased level of consciousness. The patient was accompanied by family, history by chart review and taking to family at bed side, daughter and grand daughter. I have also taken care of this patient in the past. The patient was near normal yesterday, some slurring of speech, but was drowsy yesterday evening.This morning he was very drowsy and not waking up. Given the change in status patient was brought to the hospital for further evaluation The patient does have a history of becoming altered with infections, in the ER the patient on presentation was afebrile with stable hemodynamics, labs reviewed, normal wbc, baseline renal function. Patient initial impression was possible pneumonia, but cxr was negative, mild chf. CT chest abdo pelvis showed gall stone but no e/o infection, ua was negative,. ammonia negative, CT head is negative Patient was admitted to the hospital for further evaluation. Pt had somewhat improved mental status and low grade fever at the time of admission. CRP tested was negative. ABG neg During my eval the patient was awake, non verbal tried to follow some commands, very weak in all four extremities, neuro exam was not possible, pupils were equal. Plan was to admit to tele, LP planned before admission, IV abx given in ER, 07/30 Pt seen examined, this AM doing a bit better, mental status clearer, able to speak and take his meds, history reviewed with patients , who notes that over the last couple of weeks the patient had been agitated, and a bit high. He was started on divalproex 750 nightly, trazodone 50-200 mg nightly clonazepam. The patient is also on fluoxetine and citalopram. He takes ropinirole 4 mg 3 times a day levodopa carbidopa 1-1/2 pills in the morning 1 in office in the afternoon and 1 pill in the evening. There is a concern that he is getting overmedicated and I feel this is most likely the etiology of the patient's symptoms. Cut back on medications, discontinue valproic acid, discontinue trazodone, discontinue clonazepam, discontinue citalopram. Cut back on the dose of ropinirole to 2 mg 3 times a day. Cut back on the dose of levodopa to 1 pill 3 times a day and monitor. Workup is negative for any infectious etiology so far. Blood cultures are negative at 48 hours we discontinue antibiotics 07/31 Pt seen examined, no acute overnight events, renal function slightly worse, pt had loose bowel movements overnight, no cdiff cultures remain neg, d/c abx clinically pt improving much improved, mental status better, he is able to hold conversation, but still has some sluggish speech. IVF today, monitor renal function if stable can d/c in AM 08/01 Pt seen examined sitting comfortably in chair, no acute issues reported stable for discharge. plan of care reviewed with , med changes explained. In summary Pt admitted for altered mental status, had significant changes in his medication list in the 2 weeks prior it seems extensive workup done, all negative for any infectious process. Including CSF We have cut back on his medications for now pt was on dual anti depressants, ssri, citalopram and fluoxetine. I have stopped citalopram as this is duplicate therapy his neurologist had already cut back on the ropinarole to 2mg tid, which will c ontinue as 2mg tid, he was previously on 4mg TID I have cut back on his levodopa carbidopa from 1.5pills AM PM and 1 pll QHS to 1 pill TID. Stop the clonazepam, and valporic acid qhs. The patient has done well with this regime in the hospital, i have watched him 48 hours and he has remained stable. He will be followed up with his PCP for further management. Discharge diagnosis: Altered mental st atus, - Time Spent with Patient Total time spent providing and/or coordinating discharge services: Less than 30 minutes Medical - DS: Exam - Constitutional Vitals: Vital Signs Temp Pulse Pulse Resp BP BP Pulse Ox 08/01/18 09:00 98.9 F 70 18 147/84 94 08/01/18 07:36 94 08/01/18 04:21 99.6 F H 63 16 134/69 96 08/01/18 00:03 98.6 F 62 16 142/73 96 07/31/18 20:02 99.6 F H 75 18 132/65 98 07/31/18 15:50 99.0 F 63 18 160/90 93 07/31/18 15:44 68 163/90 98 Intake and Output 07/31/18 08/01/18 08/01/18 21:59 05:59 13:59 Intake Total 1000 / 2400 150 / 2400 240 / 240 Output Total 1454 251 / 251 Balance 1000 / 946 146 / 946 -11 / -11 Intake: IV 1000 / 1500 Lactated Ringers 1,000 ml @ 150 1000 / 1000 mls/hr IV .Q6H40M [facility] Rx#: [id number] Oral 150 / 550 240 / 240 Output: # of times incontinent of urine Stool 250 / 250 Other: Meal Dinner Breakfast Percent of Meal Consumed 100% 100% Feeding Ability Needs Supervision Urine Odor Uretheral (Camp) Normal Stool Size Large Large Moderate Stool Color Brown Brown Brown Yellow Yellow Stool Consistency Liquid Liquid Loose # of times incontinent of 5 Bowels Weight 196 lb 11.2 oz Additional comments: Constitutional; Afebrile, cooperative, alert, not in distress. Respiratory system: Air Entry equal on both sides, No crackles or wheezing, no rhonchi. CVS- Rate rhythm regular, S1,S2 heard, no gallop, no rub. Abdomen- Soft nontender abdomen, no organomegaly, no tenderness, no guarding or rigidity, TRACK WORKER- AOOx2-3, moving all extremities, no gross focal deficit noted. Medical - DS: Data Labs on day of discharge: Labs from last 24 hours 08/01/18 08/01/18 08/01/18 08:23 03:44 03:44 WBC 5.7 RBC 3.98 L Hgb 12.6 L Hct 39.4 L MCV 99.0 MCH 31.6 MCHC 31.9 RDW 13.9 Plt Count 189 MPV 7.3 L Gran % 58.1 Lymph % (Auto) 26.3 Mcdonough % (Auto) 8.5 Eos % (Auto) 6.7 Baso % (Auto) 0.4 Gran # 3.3 Lymph # (Auto) 1.5 Mcdonough # (Auto) 0.5 Eos # (Auto) 0.4 Baso # (Auto) 0 Sodium 144 Potassium 4.5 Chloride 110 H Carbon Dioxide 23 Anion Gap 11.0 BUN 24 H Creatinine 1.9 H GFR Calculation 34 Glucose 85 Uric Acid 6.5 Calcium 9.1 Phosphorus 3.4 Magnesium 1.7 Total Bilirubin 0.2 Direct Bilirubin < 0.2 GGT 14 AST 22 ALT < 5 Alkaline Phosphatase 75 Lactate Dehydrogenase 235 Total Protein 6.6 Albumin 3.1 L Globulin 3.5 Albumin/Globulin Ratio 0.9 L Triglycerides 118 Vancomycin Trough 16.3 Preliminary micro results at discharge 07/29/18 14:10 Blood Culture - Preliminary Blood 07/29/18 14:14 Blood Culture - Preliminary Blood Medical - DS: A/P - Patient/Caregiver Discharge Instructions Activity: increase activity as tolerated Diet: Cardiac Additional Instructions: [facility] will contact you at home to schedule your next visit with them. Your hospital physical therapy notes have been faxed to them. If you do not hear from them, please call to schedule an appointment. Please use ropinirole 2mg three time a day Take levodopa-carbidopa 1 pill three times a day stop citalopram, continue fluoxetine. Stop valproic acid, stop clonazepam follow up with PCP in 1 -2 weeks follow-up neurology in 2-3 weeks Go to the Er if worsening condition,chest pain, shortness of breath or any other acute concern. - Follow up Plan Follow up with: Osbaldo Meredith MD [Physician] - 08/02/18 1:45 pm (Please check in at 1:30 pm) Disposition: Home, Self-Care Prognosis: Fair Rehab Potential: Fair I certify that the patient requires SNF services: No Overall status at discharge: patient is progressing back to baseline Medical - DS: Qual - VTE Deep Vein Thrombosis/Pulmonary Embolism Present on Admission: No
== END 2018-08-01 13:10 | disposition home or self-care (01) | DRG 948 ==
LOC: ED 13:06 → ICU 21:06
PROVIDERS: ADMIT Internal Medicine; ATTEND Internal Medicine

== ENCOUNTER 2019-05-27 07:56 | Inpatient (IN) ==
[2019-05-22 17:46] LABS: Appearance,Urine CLEAR; Bilirubin,Urine NEG (NEG); Color,Urine YELLOW; Glucose,Urine (UA) NEGATIVE (NEG); Ketones,Urine NEG (NEG); Leukocyte Esterase,Urine NEG /uL (NEG); Nitrate,Urine NEG (NEG); Protein,Urine NEG (NEG); Specific Gravity,Urine 1.016 (1.000-1.035); Urine Blood NEG mg/dL (<0.03); Urobilinogen,Urine NEG (NEG)
[2019-05-22 18:57] LABS: Basophils # (Auto) 0 K/mcL (0.0-0.3); Basophils % (Auto) 0.5 % (0.0-2.0); Eosinophils # (Auto) 0.2 K/mcL (0.0-0.7); Eosinophils % (Auto) 3.5 % (0.0-7.0); Granulocytes % (Auto) 62.2 % (38.0-78.0); Hematocrit 42.4 % (41.0-55.0); Hemoglobin 13.6 g/dL (13.5-16.5); Lymphocytes # (Auto) 1.6 K/mcL (1.5-4.8); Lymphocytes % (Auto) 26.4 % (15.5-49.0); Mean Cell Volume 98.5 fL (80.0-100.0); Mean Corpuscular HGB Conc 32.1 g/dL (31.0-36.0); Mean Platelet Volume 6.9 fL (7.4-10.4); Monocytes # (Auto) 0.5 K/mcL (0.1-0.9); Monocytes % (Auto) 7.4 % (1.0-12.0); Platelet Count 238 K/mcL (140-440); RBC 4.31 M/mcL (4.50-5.90); Red Cell Distribution Width 15.3 % (11.5-14.5); WBC 6.1 K/mcL (4.5-11.0)
[2019-05-22 19:25] LABS: Prothrombin Time 12.7 sec (11.9-14.5)
[2019-05-22 19:57] LABS: Blood Urea Nitrogen 19 mg/dl (8-23); Calcium 8.9 mg/dl (8.6-10.4); Carbon Dioxide 21 mmol/L (22-30); Chloride 110 mmol/L (96-108); Glomerular Filtration Rate 45; Glucose 102 mg/dL (70-105)
[~2019-05-27 07:56] MED LIST: ACETAMINOPHEN 500 MG TABLET PO SCH; CELECOXIB 200 MG CAPSULE PO SCH; IPRATROPIUM/ALBUTEROL 3 ML AMPUL.NEB NEB PRN; PREGABALIN 75 MG CAPSULE PO SCH; SCOPOLAMINE 1 PATCH PATCH TOPICAL PRN; ceFAZolin 2 GM in DEXTROSE 5% IN WATER 50 ML IV SCH; oxyCODONE 10 MG TAB.ER.12H PO SCH
[2019-05-27] MEDS ORDERED: GENTAMICIN SULFATE 800 MG/20 ML VIAL IR ONE (09:37)
[2019-05-27] MEDS ORDERED: PHENYLEPHRINE 10 MG/ML VIAL IV ONE (10:30)
[2019-05-27] MEDS ORDERED: LIDOCAINE HCL/PF 100 MG/5 ML SYRINGE IV ONE (10:30)
[2019-05-27] MEDS ORDERED: fentaNYL 250 MCG/5 ML VIAL IV ONE (10:30)
[2019-05-27] MEDS ORDERED: PROPOFOL 200 MG/20 ML VIAL IV ONE (10:30)
[2019-05-27] MEDS ORDERED: KETAMINE 100 MG/ML ML IV ONE (10:30)
[2019-05-27] MEDS ORDERED: DEXAMETHASONE 10 MG/ML VIAL IV ONE (10:30)
[2019-05-27] MEDS ORDERED: ONDANSETRON 4 MG/2 ML VIAL IV ONE (10:30)
[2019-05-27] MEDS ORDERED: GLYCOPYRROLATE 0.2 MG/ML VIAL IV ONE (10:30)
[2019-05-27] MEDS ORDERED: TRANEXAMIC ACID 1,000 MG/10 ML VIAL IV ONE ×2 (10:30→11:42)
[2019-05-27] MEDS ORDERED: MIDAZOLAM 2 MG/2 ML VIAL IV ONE (10:30)
[2019-05-27] MEDS ORDERED: SUCCINYLCHOLINE 20 MG/ML ML IV ONE (10:30)
[2019-05-27] MEDS ORDERED: NALOXONE HCL 0.4 MG/ML VIAL IV PRN (11:10)
[2019-05-27] MEDS ORDERED: BENZOCAINE/MENTHOL 1 LOZENGE PO PRN ×2 (11:10→11:42)
[2019-05-27] MEDS ORDERED: IPRATROPIUM/ALBUTEROL 3 ML AMPUL.NEB NEB PRN (11:10)
[2019-05-27] MEDS ORDERED: ONDANSETRON 4 MG/2 ML VIAL IV PRN ×2 (11:10→11:42)
[2019-05-27] MEDS ORDERED: METHOCARBAMOL 1,000 MG/10 ML VIAL IV PRN (11:10)
[2019-05-27] MEDS ORDERED: LACTATED RINGERS 250 ML IV PRN (11:10)
[2019-05-27] MEDS ORDERED: FLUMAZENIL 0.1 MG/ML ML IV PRN (11:10)
[2019-05-27] MEDS ORDERED: HYDROmorphone 2 MG/ML VIAL IV PRN (11:10)
[2019-05-27] MEDS ORDERED: LABETALOL 5 MG/ML ML IV PRN (11:10)
[2019-05-27] MEDS ORDERED: LACTATED RINGERS 1,000 ML IV SCH (11:15)
[2019-05-27] MEDS ORDERED: BISACODYL 10 MG SUPP.RECT PR PRN (11:42)
[2019-05-27] MEDS ORDERED: POLYETHYLENE GLYCOL 3350 17 GM PACKET PO PRN (11:42)
[2019-05-27] MEDS ORDERED: MAGNESIUM HYDROXIDE 30 ML ORAL.SUSP PO PRN (11:42)
[2019-05-27] MEDS ORDERED: FLEETS ADULT ENEMA PR PRN (11:42)
--- NOTE | 2019-05-27 11:42 | Brief Operative Note ---
Date of procedure: 05/27/19 Pre-op diagnosis: left shoulder rca with djd Post-op diagnosis: same Procedure: left reverse tsa with bicep [id number] Grafts/Implants: Yes Anesthesia: RAFAEL Surgeon: Delon Singh Store Deli Manager: Alvin Willett Estimated blood loss (cc): 110 Specimens Removed/Pathology: none sent Condition: stable Disposition: PACU
[2019-05-27] MEDS ORDERED: CHOLESTYRAMINE/ASPARTAME 4 GM POWD.PACK PO PRN (11:47)
[2019-05-27] MEDS ORDERED: traMADol 50 MG TABLET PO PRN (11:47)
[2019-05-27] MEDS ORDERED: ACETAMINOPHEN 325 MG TABLET PO PRN (11:47)
--- NOTE | 2019-05-27 12:15 | Operative Note ---
DATE OF OPERATION: 05/27/2019 PREOPERATIVE DIAGNOSES: Left shoulder rotator cuff arthropathy and severe degenerative arthritis. POSTOPERATIVE DIAGNOSIS: Left shoulder rotator cuff arthropathy and severe degenerative arthritis. PROCEDURE: Left reverse total shoulder and biceps tenodesis. SURGEON: Delon Singh M.D. TILESETTER: Alvin Willett PA-C. The PA's assistance was required for the safe and efficient completion of the entire case. This provider's expertise and technical skill were required throughout the case. The PA assisted with preoperative coordination, intraoperative retraction, wound closure, dressing and splint application, as well as postoperative documentation and care coordination. ANESTHESIA: General LMA anesthesia. COMPLICATIONS: None. ESTIMATED BLOOD LOSS: 110 mL. INDICATION FOR SURGERY: The patient is a very pleasant 73-year-old with the inability to raise his arm. His x-rays show severe arthritis on all views with anterior subluxation. There is proximal humeral migration with spurs in all quadrants. Severe degenerative arthrosis of the left shoulder with rotator cuff arthropathy noted on MRI. He has failed all conservative measures which include anti-inflammatories, ibuprofen and Aleve, Tylenol, and has even taken mild pain pills. He awakens at night and cannot raise his hand above his head. DESCRIPTION OF PROCEDURE: The patient was brought to the operating room and put to sleep with general LMA anesthesia. Once asleep, the patient had the left shoulder sterilely prepped and draped in the usual sterile fashion. A timeout was performed. We confirmed this as the operative site by initials, consent form, and x-rays. Once this was done, we placed Ioban over the skin and made a deltopectoral approach to the shoulder. We identified the interval between the deltoid, and the pectoralis major and the cephalic vein was retracted laterally with the deltoid with a Bhatt retractor. We released the remnants of the subscap, released the biceps tendon attachment point in the bicipital groove. We then made our humeral cut at the surgical neck region. Once this was done, we then subluxed the head posteriorly and reamed up the acetabulum after a 360-degree capsular release, as well as the release of the remnants of the biceps tendon. We reamed up to the size 40. Any spurs inferiorly were released as well as the capsule. We placed a 28 mm glenosphere with a central screw measuring 32 mm, three peripheral screws measuring 32 and 28 and 28 mm. All locked well. Good purchase of all. We then placed the 40 mm glenosphere. This was 2 mm of eccentricity and 2 mm of offset. We irrigated thoroughly and then prepared the humeral side. This was broached up to a size 12. We trialed the size 12 stem. This seemed to fit very nicely, as well as a standard-thickness poly. After countersinking the stem to tension the humerus perfectly, we irrigated thoroughly and then tapped into place a size 12 stem cementless with a small amount of cement on the distal limb given his poor bone quality for early fixation. We also placed a standard-thickness poly proximally which was tapped into place and reduced without difficulty. We irrigated and took the arm through full range of motion. It was stable in all quadrants. We irrigated thoroughly and we closed the deltopectoral interval with 2-0 Vicryl. Skin was closed with 2-0 Vicryl and adhesive closure. Sterile bandage was applied. A DonJoy sling was fitted and given to the patient. DANNY:naomi Job ID: [id number] Doc ID: [id number] Delon Singh MD
--- NOTE | 2019-05-27 12:29 | XRay Report ---
HISTORY: Left shoulder arthroplasty FINDINGS: There is a well-positioned reverse left shoulder prosthesis. No fracture is present. There is mild arthritis at the acromioclavicular joint. There is a small dystrophic calcification along the top of the joint space. There is a power pack in the left anterior chest wall with electrodes extending up to the head. IMPRESSION: Well-positioned left shoulder prosthesis Interpreted and Authenticated by: Antonio Carty 05/27/19
[2019-05-27] MEDS: fentaNYL 100 MCG/2 ML VIAL IV PRN ×4 (12:46→13:08)
[2019-05-27] MEDS: 0.9 % SODIUM CHLORIDE 10 ML SYRINGE IV SCH ×2 (15:34→20:14)
[2019-05-27] MEDS: PRAMIPEXOLE 0.25 MG TABLET PO SCH ×2 (20:12)
[2019-05-27] MEDS: CARBIDOPA/LEVODOPA 25/100 TABLET PO SCH ×2 (20:12→20:13)
[2019-05-27] MEDS: MEMANTINE 10 MG TABLET PO SCH (20:12)
[2019-05-27] MEDS: SENNOSIDES 1 TABLET PO SCH (20:13)
[2019-05-27] MEDS: DOCUSATE SODIUM 100 MG CAPSULE PO SCH (20:13)
[2019-05-27] MEDS: ceFAZolin 1 GM VIAL IV SCH (20:13)
[2019-05-27] MEDS: LACTATED RINGERS 1,000 ML IV SCH (20:14)
[2019-05-27] MEDS: clonazePAM 0.5 MG TABLET PO SCH (20:16)
[2019-05-28] MEDS ORDERED: LORazepam 2 MG/ML VIAL IV PRN ×2 (00:14→02:51)
[2019-05-28] MEDS: ACETAMINOPHEN 1,000 MG/100 ML BOTTLE IV PRN ×2 (00:20→21:35)
[2019-05-28] MEDS: LACTATED RINGERS 1,000 ML IV SCH ×5 (00:20→19:40)
[2019-05-28] MEDS ORDERED: LORazepam 2 MG/ML VIAL ONE ×2 (00:20→02:48)
[2019-05-28] MEDS ORDERED: ACETAMINOPHEN 1,000 MG/100 ML BOTTLE IV ONE (00:23)
[2019-05-28] MEDS: ceFAZolin 1 GM VIAL IV SCH (02:48)
[2019-05-28] MEDS: 0.9 % SODIUM CHLORIDE 10 ML SYRINGE IV SCH ×3 (05:01→21:03)
--- NOTE | 2019-05-28 07:42 | Orthopedic Progress Note ---
Subjective Patient information: Note initiated : 05/28/19 at 7:40 am Service Date, if different from initiated Date: [] Patient: Pop Capellan 73 y/o M admitted on 05/27/19 for Left Reverse Total Shoulder Arthroplasty. Chief Complaint: [Pt is stable this morning on post operative day 1 without any significant concerns or complaints. Although pt is pretty foggy and has been given Ativan for agitation last night. Patients vital signs have remained stable. Patients dressing is dry and is grossly intact from a neurovascular and motor standpoint. Patients 10 point ROS is otherwise negative per staff electrical engineer. ] Objective Vital signs: Vital Signs Temp Pulse Resp BP Pulse Ox 05/28/19 02:58 99.6 F H 104 H 16 140/75 95 05/27/19 23:05 99.2 F H 97 H 14 141/76 95 05/27/19 19:08 98.9 F 92 H 14 132/86 97 05/27/19 16:00 97.5 F 78 12 101/66 90 05/27/19 15:56 88 110/69 90 05/27/19 15:26 88 114/74 90 05/27/19 14:56 96 H 128/71 91 05/27/19 14:41 97.6 F 97 H 16 132/78 90 05/27/19 14:26 99 H 141/86 94 05/27/19 14:11 104 H 151/92 96 05/27/19 13:36 107 H 142/92 05/27/19 13:28 98.2 F 109 H 16 148/76 98 05/27/19 13:11 98.2 F 105 H 18 147/87 95 05/27/19 12:55 97.4 F 99 H 16 167/95 96 05/27/19 12:42 97.8 F 88 18 157/101 99 05/27/19 12:28 97.8 F 76 18 146/75 98 05/27/19 12:14 97.6 F 68 14 115/69 98 05/27/19 12:10 64 12 115/69 100 05/27/19 12:05 64 13 106/61 100 05/27/19 12:00 96.9 F L 58 L 13 95/59 99 05/27/19 08:00 97.4 F 73 18 130/79 98 Intake and Output 1105/28/19 05/28/19 21:59 05:59 13:59 Intake Total 410 Output Total 2 Balance 408 Intake: IV 410 Lactated Ringers 1,000 ml @ 100 410 mls/hr IV .Q10H TREVOR Rx#: [id number] Oral 0 Output: # of times incontinent of urine 2 Other: Urine Odor Normal Weight 190 lb 8 oz Intake & Output: Intake & Output 05/27/19 05/28/19 05/28/19 21:59 05:59 13:59 Intake Total 410 Output Total 2 Balance 408 Weight 190 lb 8 oz Intake: IV 410 Lactated Ringers 1,000 ml @ 100 410 mls/hr IV .Q10H TREVOR Rx#: [id number] Oral 0 Output: # of times incontinent of urine 2 Other: Urine Odor Normal Incision: Yes healing Incision clean and dry: Yes Dressing: Yes clean Weight bearing status: full Neurological exam IM: Yes motor sensory intact, Yes neurovascular intact Extremities exam IM: Yes neurovascular intact - Labs CBC & BMP: 05/22/19 14:35 05/22/19 14:35 Labs: Orthopedic Labs 05/22/19 14:35 PT 12.7 INR 1.0 APTT 29 05/22/19 14:35 Hgb 13.6 Hct 42.4 Assessment and Plan (1) History of reverse total replacement of left shoulder joint The patient has been educated regarding dressing care, Physical Therapy recommendations, home exercises, restrictions, and follow up appointments. The patient has had all necessary DME prescribed. The patient has remained relatively stable during their hospital course despite confusion and oversedation. Status: Acute
--- NOTE | 2019-05-28 07:50 | Discharge Summary ---
Ortho Discharge - TSA - Patient Instructions Diet: Regular Diet Activity: activity as tolerated, weight bearing as tolerated Total Shoulder Protocol: Leave immobilizer in place except for bathing and ROM. Abduction pillow. Continue to wear sling until seen by physician. Codman Pendulum : These exercises use momentum produced by your body to move your shoulder joint. Bend your knees and shift your weight to your front leg, then back, allowing your arm to swing in the same directions. Using the same technique, alternately shift your weight between your right and left legs, allowing your arm to swing from side to side. These exercises are also performed in counterclockwise and clockwise circular motions. Typically these exercises are performed several times per day, for a set number repetitions or minutes, such as 20 times in a row or 5 minutes at a time. Dressing Care: May shower in 2 days - Problem Maintenance (1) History of reverse total replacement of left shoulder joint Status: Acute - Follow Up Plan Follow Up Appointments: Alvin Willett PA-C [Physician Marine Driller] - 06/11/19 3:10 pm Disposition: Home, Self-Care Prognosis: Good Rehab Potential: Good I certify that the patient requires SNF services: Yes (Due to significant confusion secondary Parkinson's) Overall status at discharge: patient is progressing back to baseline - Orders For Discharge Prescriptions: Docusate Sodium [Colace] 100 mg PO BID #60 cap Transmission Status: Pending to [facility]
[2019-05-28 10:14] LABS: Hematocrit 36.6 % (41.0-55.0)
[2019-05-28] MEDS: VIT A,C & E/LUTEIN/MINERALS TABLET PO SCH (10:52)
[2019-05-28] MEDS: MEMANTINE 10 MG TABLET PO SCH ×2 (10:52→19:33)
[2019-05-28] MEDS: PRAMIPEXOLE 0.25 MG TABLET PO SCH ×3 (10:52→19:33)
[2019-05-28] MEDS: VITAMIN D3 1,000 UNIT TABLET PO SCH (10:52)
[2019-05-28] MEDS: SERTRALINE 50 MG TABLET PO SCH (10:52)
[2019-05-28] MEDS: CARBIDOPA/LEVODOPA 25/100 TABLET PO SCH ×3 (10:52→19:34)
[2019-05-28] MEDS: ASPIRIN 81 MG TAB.CHEW PO SCH (10:52)
[2019-05-28] MEDS: DOCUSATE SODIUM 100 MG CAPSULE PO SCH ×2 (10:53→19:34)
[2019-05-28] MEDS: SENNOSIDES 1 TABLET PO SCH (19:34)
[2019-05-28] MEDS: clonazePAM 0.5 MG TABLET PO SCH (19:34)
[2019-05-29] MEDS: LACTATED RINGERS 1,000 ML IV SCH (04:41)
[2019-05-29] MEDS: 0.9 % SODIUM CHLORIDE 10 ML SYRINGE IV SCH ×3 (05:12→22:42)
[2019-05-29] MEDS: ACETAMINOPHEN 1,000 MG/100 ML BOTTLE IV PRN (05:26)
[2019-05-29 06:28] LABS: Hematocrit 36.3 % (41.0-55.0); Hemoglobin 12.1 g/dL (13.5-16.5)
--- NOTE | 2019-05-29 08:10 | Orthopedic Progress Note ---
Subjective Patient information: Note initiated : 05/29/19 at 8:08 am Service Date, if different from initiated Date: [] Patient: Pop Capellan 73 y/o M admitted on 05/27/19 for Left Reverse Total Shoulder Arthroplasty. Chief Complaint: [] Principal diagnosis: confused an not deep breathing and confused. Objective Vital signs: Vital Signs Temp Pulse Resp BP Pulse Ox 05/29/19 08:00 99.0 F 26 H 178/87 05/29/19 07:22 99.0 F 109 H 26 H 178/87 94 05/29/19 04:20 99.1 F H 100 H 18 156/98 94 05/28/19 23:30 98.3 F 99 H 18 166/94 95 05/28/19 19:49 98 F 83 16 145/81 98 05/28/19 16:00 99.3 F H 84 22 152/76 96 05/28/19 12:00 99.0 F 86 22 109/65 95 Intake and Output 05/28/19 05/29/19 05/29/19 21:59 05:59 13:59 Intake Total 983 1002 100 Output Total 1 2 Balance 982 1000 100 Intake: IV 863 1002 100 Lactated Ringers 1,000 ml @ 100 863 902 mls/hr IV .Q10H TREVOR Rx#: [id number] Oral 120 Output: # of times incontinent of urine 1 2 Other: Meal Breakfast Percent of Meal Consumed 50% Feeding Ability Assist with Tray Set Up Urine Odor Strong # Voids 1 1 Weight 188 lb 14.4 oz Intake & Output: Intake & Output 05/28/19 05/29/19 05/29/19 21:59 05:59 13:59 Intake Total 983 1002 100 Output Total 1 2 Balance 982 1000 100 Weight 188 lb 14.4 oz Intake: IV 863 1002 100 Lactated Ringers 1,000 ml @ 100 863 902 mls/hr IV .Q10H TREVOR Rx#: [id number] Oral 120 Output: # of times incontinent of urine 1 2 Other: Meal Breakfast Percent of Meal Consumed 50% Feeding Ability Assist with Tray Set Up Urine Odor Strong # Voids 1 1 Incision: Yes healing Incision clean and dry: Yes Dressing: Yes clean Weight bearing status: full Neurological exam IM: Yes alert, Yes oriented X3, Yes neurovascular intact Extremities exam IM: Yes Foot pink and warm - Allied Health Allied health notes reviewed: case management (dc to [facility]) - Labs CBC & BMP: 05/29/19 04:15 05/22/19 14:35 Labs: Orthopedic Labs 05/22/19 14:35 PT 12.7 INR 1.0 APTT 29 05/29/19 05/28/19 05/22/19 04:15 08:24 14:35 Hgb 12.1 L 12.0 L 13.6 Hct 36.3 L 36.6 L 42.4
[2019-05-29] MEDS: ASPIRIN 81 MG TAB.CHEW PO SCH (09:33)
[2019-05-29] MEDS: VIT A,C & E/LUTEIN/MINERALS TABLET PO SCH (09:33)
[2019-05-29] MEDS: SERTRALINE 50 MG TABLET PO SCH (09:33)
[2019-05-29] MEDS: DOCUSATE SODIUM 100 MG CAPSULE PO SCH ×2 (09:33→22:41)
[2019-05-29] MEDS: MEMANTINE 10 MG TABLET PO SCH ×2 (09:33→22:41)
[2019-05-29] MEDS: PRAMIPEXOLE 0.25 MG TABLET PO SCH ×3 (09:35→22:41)
[2019-05-29] MEDS: CARBIDOPA/LEVODOPA 25/100 TABLET PO SCH ×3 (09:35→22:41)
[2019-05-29] MEDS: VITAMIN D3 1,000 UNIT TABLET PO SCH (09:35)
--- NOTE | 2019-05-29 10:00 | XRay Report ---
CLINICAL INFORMATION: Hypoxia COMPARISON: 07/29/2018 FINDINGS: Mild cardiomegaly is unchanged. Mild mediastinal widening also stable. The pulmonary vessels are mildly distended there is mild bronchovascular airspace disease likely combination of edema and fibrosis. No focal infiltrates Neural stimulators overlie both mid lungs with wires ascending in the chest wall and lower neck as previously seen. No complication. IMPRESSION: Mild recurrent CHF Interpreted and Authenticated by: Son Navarro 05/29/19
[2019-05-29 10:24] LABS: Basophils # (Auto) 0 K/mcL (0.0-0.3); Basophils % (Auto) 0.2 % (0.0-2.0); Eosinophils # (Auto) 0.2 K/mcL (0.0-0.7); Granulocytes % (Auto) 78.4 % (38.0-78.0); Hematocrit 38.2 % (41.0-55.0); Hemoglobin 12.6 g/dL (13.5-16.5); Lymphocytes # (Auto) 1.2 K/mcL (1.5-4.8); Lymphocytes % (Auto) 13.5 % (15.5-49.0); Mean Cell Volume 95.7 fL (80.0-100.0); Mean Corpuscular HGB Conc 33.2 g/dL (31.0-36.0); Mean Platelet Volume 6.5 fL (7.4-10.4); Monocytes # (Auto) 0.5 K/mcL (0.1-0.9); Monocytes % (Auto) 5.9 % (1.0-12.0); Platelet Count 195 K/mcL (140-440); RBC 3.99 M/mcL (4.50-5.90); Red Cell Distribution Width 15.4 % (11.5-14.5)
[2019-05-29 10:37] LABS: ALT/SGPT 16 U/l (0-40); AST/SGOT 32 U/l (0-37); Albumin 3.7 gm/dL (3.2-5.2); Albumin/Globulin Ratio 1.1 (1.0-2.3); Alkaline Phosphatase 109 U/L (39-117); Bilirubin,Direct < 0.2 mg/dL (0.0-0.3); Bilirubin,Total 0.7 mg/dL (0.0-1.0); Blood Urea Nitrogen 21 mg/dl (8-23); Calcium 8.7 mg/dl (8.6-10.4); Carbon Dioxide 22 mmol/L (22-30); Chloride 103 mmol/L (96-108); Globulin 3.3 gm/dL (2.2-3.7); Glomerular Filtration Rate 42; Glucose 171 mg/dL (70-105); Lactate Dehydrogenase 217 U/L (94-250); Triglycerides 122 mg/dl (<150); Uric Acid 5.4 mg/dL (2.5-8.0)
[2019-05-29 10:38] LABS: Phosphorous 1.8 mg/dL (2.7-4.5)
[2019-05-29] MEDS ORDERED: MAGNESIUM SULFATE 2 GM/50 ML BAG IV ONE (11:02)
[2019-05-29] MEDS ORDERED: FUROSEMIDE 40 MG/4 ML VIAL IV ONE (11:02)
--- NOTE | 2019-05-29 12:32 | Internal Medicine Consult Note ---
Medical - CN: [facility] - Data of Consult Consult date: 05/29/19 Primary Care Provider: Teddy Salazar M.D., F.A.A.F.P. - Consult Narrative Reason for consult: Shortness of breath, confused History of present illness: Mr. Capellan is a 73 year old M with a known history of advanced Parkinson's disease with implanted deep brain stimulator/dementia who underwent left reverse total shoulder arthroplasty on 05/[address] Richardson. Postoperatively patient has been noted to be increasingly confused, delirious and difficult to manage. Subsequently hospitalist service was consulted. Patient was also noticed to be dyspneic and was not able to participate in physical therapy to the fullest extent due to decreased mobility and max assist from weakness fatigue and balance deficits. During the time of my evaluation patient is accompanied with his Jagruti. She was able to answer most of questions. Most of the history is obtained from review of medical records/ and nursing staff. Patient would barely open his eyes and would not respond to questions appropriately. He however does not appear to be distressed. Nonlabored breathing. He is currently afebrile. Per nursing staff no recent diarrhea, fever. He was noted to be incontinent of urine and intermittent agitation and restlessness. Minimal postoperative pain requiring IV Tylenol. He was noted to be combative and impulsive yesterday but since has improved. He is awaiting placement to nursing facility for short-term postoperative rehab Stat labs along with x-ray/echo/ABG was ordered for further evaluation. Prior sodium 146 with a creatinine baseline 1.5. Tachycardic at 109 Review of systems Attempted but could not be performed CC: [facility] - CN: [facility] Medical history: History of tobacco use (Chronic) Daytime sleepiness (Chronic) Chronic kidney disease, stage 4 (severe) (Chronic) Osteoarthritis (Chronic) Muscle weakness (Chronic) Sinusitis (Chronic) Depression (Chronic) History of falling (Chronic) Cough (Chronic) Nasal congestion (Chronic) Urinary tract infection (Acute) Pneumonia (Acute) Right middle lobe pneumonia (Acute) Parkinson disease (Chronic) Confusion associated with infection (Resolved) Nephrolithiasis (Chronic) Nephrolithiasis with some associated hydronephrosis could not do 24 hour urinanalysis because of his urinary issues does have poor po intake and high sodium intake, advised to improve this will consider adding K citrate in future to see if this helps with stone formation ensure follow up with urology Febrile illness (Chronic) Febrile illness, the etiology here is not clear Hypernatremia (Chronic) from free water depletion advised to increase the water intake Hypertensive renal disease (Chronic) Anemia (Chronic) b12 is low at 195 Hb is stable start b12 supplement at 1000mcg po daily will recheck labs and follow in 3m ths CKD (chronic kidney disease), stage III (Chronic) Restless leg syndrome (Chronic) Prostate cancer (Chronic) Parkinsons disease (Chronic) Pain in joint, shoulder region (Chronic) Urinary incontinence (Chronic) MRSA (methicillin resistant Staphylococcus aureus) (Chronic) 07/18/13 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 Hypertension, essential (Chronic) Fracture, humerus closed (Chronic) Incisional hernia (Chronic) Gastroesophageal reflux (Chronic) Fatigue (Chronic) Diarrhea (Chronic) short bowel syndrome Chest pain (Chronic) CAD (coronary artery disease) (Chronic) with stent Benign localized hyperplasia of prostate without urinary obstruction (Chronic) Monroy's esophagus (Chronic) Renal failure (Chronic) TIA (transient ischemic attack) (Chronic) Surgical History Hx of external ear surgery (Acute) 05/16/13 Right lower ear biopsy Hx of brain surgery (Acute) 11/20/14 Bilateral Deep Brain battery exchange Hx of colostomy (Acute) Hx of colectomy (Acute ~2001) bowel perforation/sepsis H/O colonoscopy (Chronic ~2014) History of coronary artery stent placement (Chronic) History of surgery (Chronic 2018) Batteries replaced DBP(S) S/P deep brain stimulator placement (Chronic ~2008) Family History no family member listed Atherosclerosis of coronary artery Medical - CN: Meds Home Medications Medication Instructions Recorded Confirmed Type Aspirin [Lo-Dose Aspirin EC] 81 mg PO DAILY 09/07/16 05/23/19 History carbidopa 25 mg-levodopa 100 mg 1.5 tab PO DAILY tab 08/24/18 05/23/19 History tablet memantine 10 mg tablet 10 mg PO BID 08/24/18 05/23/19 History sertraline 50 mg tablet 100 mg PO QDAY 05/08/19 05/23/19 History Cholestyramine [Cholestyramine 5 gm PO DAILYP PRN 05/22/19 05/23/19 History Resin] Pramipexole [Mirapex] 0.25 mg PO TID 05/22/19 05/23/19 History Vit A,C & E/Lutein/Minerals 1 tab PO DAILY 05/22/19 05/23/19 History [Ocuvite] Vitamin D3 1,000 unit PO DAILY 05/22/19 05/23/19 History sulfamethoxazole 800 1 tab PO BID #14 tab 05/23/19 05/23/19 Rx mg-trimethoprim 160 mg tablet Docusate Sodium [Colace] 100 mg PO BID #60 cap 05/28/19 Rx Acetaminophen [Tylenol] 500 - 1,000 mg PO Q6HP PRN #60 05/29/19 Rx oral.susp Carbidopa/Levodopa 25/100 [Sinemet 1 tab PO BID@1200,2100 #30 tab 05/29/19 Rx 25/100] Carbidopa/Levodopa 25/100 [Sinemet 1 tab PO BID@1200,2100 #30 tab 05/29/19 Rx 25/100] Magnesium Hydroxide [Milk of 30 ml PO BIDP PRN oral.susp 05/29/19 Rx Magnesia] Sertraline [Zoloft] 100 mg PO QDAY tab 05/29/19 Rx clonazePAM [KlonoPIN] 0.5 mg PO HS #30 tab 05/29/19 Rx traMADol [Ultram] 50 mg PO Q6HP PRN #15 tab 05/29/19 Rx Allergies Allergy/AdvReac Type Severity Reaction Status Date / Time shellfish derived Allergy Intermediate softshell Verified 05/23/19 14:12 fish, hives lactose AdvReac Mild stomach Verified 05/23/19 14:12 upset morphine AdvReac Mild Hallucinati Verified 05/28/19 06:00 ons Medical - CN: Exam - Constitutional Vitals: Temp Pulse Resp BP Pulse Ox 99.0 F 109 H 26 H 178/87 94 05/29/19 08:00 05/29/19 07:22 05/29/19 08:00 05/29/19 08:00 05/29/19 07:22 General appearance: no acute distress Exam: Resting comfortably Involuntary bilateral upper extremity movements Opens eyes to verbal command Head normocephalic Oral cavity dry No ear nose discharge S1-S2 regular rhythm tachycardia over 100 Diminished breath sounds bases with late inspiratory crackles bilateral chest Abdomen soft nontender nondistended Left shoulder postoperative dressing Lower extremity minimal lymphedema Skin no suspicious lesion Psych anxious but disoriented Neuro could not be performed Medical - CN: Result - Labs CBC & Chem 7: 05/29/19 09:23 05/29/19 09:23 Labs: Short CBC 05/29/19 05/29/19 Range/Units 04:15 09:23 WBC 9.0 (4.5-11.0) K/mcL Hgb 12.1 L 12.6 L (13.5-16.5) g/dL Hct 36.3 L 38.2 L (41.0-55.0) % Plt Count 195 (140-440) K/mcL BMP 05/29/19 09:23 Sodium 139 Potassium 3.7 Chloride 103 Carbon Dioxide 22 BUN 21 Creatinine 1.6 H Glucose 171 H Calcium 8.7 Cardiac Enzymes 05/29/19 Range/Units 11:20 Troponin T < 0.01 (0-0.03) ng/ml Liver Function 05/29/19 Range/Units 09:23 Total Bilirubin 0.7 (0.0-1.0) mg/dL Direct Bilirubin < 0.2 (0.0-0.3) mg/dL GGT 20 (8-61) U/L AST 32 (0-37) U/l ALT 16 (0-40) U/l Alkaline Phosphatase 109 (39-117) U/L Albumin 3.7 (3.2-5.2) gm/dL Medical - CN: A/P (1) Acute decompensated heart failure Status: Acute Assessment and plan: * Acute encephalopathy with confusion and agitation-close delirium watch. Bright lights/frequent reorientation and avoidance of sedative-hypnotics. * Acute decompensated heart failure diastolic with preserved ejection fraction as of July 2018. Evident on chest imaging. Repeat echo pending. Likely secondary to postoperative fluid administration. Start diuretics and hold crystalloids. Repeat chest imaging 24 hours * Dyspnea with tachypnea ABG 7.46/30 * Anxiety disorder continue clonazepam/sertraline/pramipexole * History of advanced Parkinson disease status post deep brain stimulator. Follows up with neurology as outpatient * Right elbow infection on Bactrim per ID * High risk aspiration continue close monitoring * Left reverse TSA-postoperative care as per orthopedics * DNR Plan * Aggressive diuresis/echocardiogram * Aspiration precaution * Repeat chest imaging 24 hours * PT OT nutrition support * Bright lights/frequent reorientation/maintain fall risk and delirium watch * Discharge planning per case management Thank you for consult. Overall high complexity counseling is patient with a decompensated heart failure/advanced Parkinson's/dementia
[2019-05-29] MEDS: FUROSEMIDE 20 MG/2 ML VIAL IV SCH (14:44)
[2019-05-29 15:54] LABS: Appearance,Urine CLEAR; Bilirubin,Urine NEG (NEG); Color,Urine COLORLESS; Glucose,Urine (UA) NEGATIVE (NEG); Ketones,Urine NEG (NEG); Leukocyte Esterase,Urine NEG /uL (NEG); Nitrate,Urine NEG (NEG); Protein,Urine NEG (NEG); Specific Gravity,Urine 1.006 (1.000-1.035); Urine Blood NEG mg/dL (<0.03); Urobilinogen,Urine NEG (NEG)
[2019-05-29] MEDS: clonazePAM 0.5 MG TABLET PO SCH (22:41)
[2019-05-29] MEDS: SULFAMETHOXAZOLE/TRIMETHOPRIM 1 TABLET PO SCH (22:41)
[2019-05-29] MEDS: SENNOSIDES 1 TABLET PO SCH (22:41)
[2019-05-30] MEDS: 0.9 % SODIUM CHLORIDE 10 ML SYRINGE IV SCH (05:09)
[2019-05-30 06:52] LABS: Hemoglobin 12.9 g/dL (13.5-16.5)
[2019-05-30] MEDS: VIT A,C & E/LUTEIN/MINERALS TABLET PO SCH (09:43)
[2019-05-30] MEDS: VITAMIN D3 1,000 UNIT TABLET PO SCH (09:43)
[2019-05-30] MEDS: ASPIRIN 81 MG TAB.CHEW PO SCH (09:43)
[2019-05-30] MEDS: PRAMIPEXOLE 0.25 MG TABLET PO SCH (09:43)
[2019-05-30] MEDS: DOCUSATE SODIUM 100 MG CAPSULE PO SCH (09:44)
[2019-05-30] MEDS: FUROSEMIDE 20 MG/2 ML VIAL IV SCH (09:44)
[2019-05-30] MEDS: SERTRALINE 50 MG TABLET PO SCH (09:44)
[2019-05-30] MEDS: SULFAMETHOXAZOLE/TRIMETHOPRIM 1 TABLET PO SCH (09:45)
[2019-05-30] MEDS: MEMANTINE 10 MG TABLET PO SCH (09:45)
[2019-05-30] MEDS: CARBIDOPA/LEVODOPA 25/100 TABLET PO SCH ×2 (09:52→11:49)
--- NOTE | 2019-05-30 11:28 | Discharge Summary ---
Medical - DS: Prov Patient information: Note initiated : 05/30/19 at 11:25 am Service Date, if different from initiated Date: [] Patient: Pop Capellan 73 y/o M admitted on 05/27/19 for Left Reverse Total Shoulder Arthroplasty. Chief Complaint: [] Date of admission: 05/27/19 07:56 Discharge date: 05/30/19 Primary care physician: Teddy Salazar M.D., F.A.A.F.P. Consults: 05/29/19 08:53 Consult to Physician [CONS] Routine Comment: Consulting Provider: Pop Dewitt Reason For Exam: Physician to Consult Medical - DS: Meds - Discharge Medications Prescriptions: Docusate Sodium [Colace] 100 mg PO BID #60 cap Transmission Status: Received by [facility] clonazePAM [KlonoPIN] 0.5 mg PO HS #30 tab Prescription Printed Carbidopa/Levodopa 25/100 [Sinemet 25/100] 1 tab PO BID@1200,2100 #30 tab Transmission Status: Received by [facility] Carbidopa/Levodopa 25/100 [Sinemet 25/100] 1 tab PO BID@1200,2100 #30 tab Transmission Status: Received by [facility] Acetaminophen [Tylenol] 500 - 1,000 mg PO Q6HP PRN #60 oral.susp PRN Reason: Pain Transmission Status: Received by [facility] traMADol [Ultram] 50 mg PO Q6HP PRN #15 tab PRN Reason: Pain Prescription Printed Active and Home Medications: Home Medications Aspirin [Lo-Dose Aspirin EC] 81 mg PO DAILY 09/07/16 [History Confirmed 05/23/19 Last Taken 04/12/17] carbidopa 25 mg-levodopa 100 mg tablet 1.5 tab PO DAILY tab 08/24/18 [History Confirmed 05/23/19 Last Taken Unknown] memantine 10 mg tablet 10 mg PO BID 08/24/18 [History Confirmed 05/23/19 Last Taken Unknown] Cholestyramine [Cholestyramine Resin] 5 gm PO DAILYP PRN 05/22/19 [History Confirmed 05/23/19 Last Taken Unknown] Pramipexole [Mirapex] 0.25 mg PO TID 05/22/19 [History Confirmed 05/23/19 Last Taken Unknown] Vit A,C & E/Lutein/Minerals [Ocuvite] 1 tab PO DAILY 05/22/19 [History Confirmed 05/23/19 Last Taken Unknown] Vitamin D3 1,000 unit PO DAILY 05/22/19 [History Confirmed 05/23/19 Last Taken Unknown] sulfamethoxazole 800 mg-trimethoprim 160 mg tablet 1 tab PO BID #14 tab 05/23/19 [Rx Confirmed 05/29/19 Last Taken Unknown] Docusate Sodium [Colace] 100 mg PO BID #60 cap 05/28/19 [Rx Last Taken Unknown] Acetaminophen [Tylenol] 500 - 1,000 mg PO Q6HP PRN #60 oral.susp 05/29/19 [Rx Last Taken Unknown] Carbidopa/Levodopa 25/100 [Sinemet 25/100] 1 tab PO BID@1200,2100 #30 tab 05/29/19 [Rx Last Taken Unknown] Carbidopa/Levodopa 25/100 [Sinemet 25/100] 1 tab PO BID@1200,2100 #30 tab 05/29/19 [Rx Last Taken Unknown] Magnesium Hydroxide [Milk of Magnesia] 30 ml PO BIDP PRN oral.susp 05/29/19 [Rx Last Taken Unknown] Sertraline [Zoloft] 75 mg PO DAILY 05/29/19 [History Confirmed 05/29/19 Last Taken 05/29/19] clonazePAM [KlonoPIN] 0.5 mg PO HS #30 tab 05/29/19 [Rx Last Taken Unknown] traMADol [Ultram] 50 mg PO Q6HP PRN #15 tab 05/29/19 [Rx Last Taken Unknown] Medical - DS: Hosp Hospital Course: Discharge diagnosis * Left reverse TSA-postoperative care as per orthopedics. Continue follow-up with orthopedics in 2 to 4 weeks. Continue postoperative recommendation as per orthopedics. Continue aggressive rehab at SNF. * Acute encephalopathy with confusion and agitation-secondary delirium. Clinically resolved now at baseline. Avoid sedative-hypnotics at SNF to minimize chance of recurrent delirium * Acute decompensated heart failure diastolic with preserved ejection fraction as of July 2018. Evident on chest imaging. Responded well to diuretics. Clinically resolved * Dyspnea with tachypnea secondary to CHF. Clinically resolved. Initial ABG 7.46/30 * Anxiety disorder remained stable on sertraline/pramipexole * History of advanced Parkinson disease status post deep brain stimulator. Follows up with neurology as outpatient. Continue levodopa carbidopa/pramipexole * Right elbow infection continue Bactrim per ID * High risk aspiration continue aspiration precautions Brief hospital course Mr. Capellan is a 73 year old M with a known history of advanced Parkinson's disease with implanted deep brain stimulator/dementia who underwent left reverse total shoulder arthroplasty on 05/[address] Richardson. Postoperatively patient has been noted to be increasingly confused, delirious and difficult to manage. Subsequently hospitalist service was consulted. Patient was also noticed to be dyspneic and was not able to participate in physical therapy to the fullest extent due to decreased mobility and max assist from weakness fatigue and balance deficits. During the time of my evaluation patient is accompanied with his Jagruti. She was able to answer most of questions. Most of the history is obtained from review of medical records/ and nursing staff. Patient would barely open his eyes and would not respond to questions appropriately. He however does not appear to be distressed. Nonlabored breathing. He is currently afebrile. Per nursing staff no recent diarrhea, fever. He was noted to be incontinent of urine and intermittent agitation and restlessness. Minimal postoperative pain requiring IV Tylenol. He was noted to be combative and impulsive yesterday but since has improved. He is awaiting placement to nursing facility for short-term postoperative rehab Stat labs along with x-ray/echo/ABG was ordered for further evaluation. Prior sodium 146 with a creatinine baseline 1.5. Tachycardic at 109 05/30-patient was admitted on 05/27 for reverse left TSA and did well postoperatively except for episode of delirium and volume overload from crystalloids. Patient responded well to diuresis. He is now at baseline. Tolerating diet ambulating and undergoing physical therapy. Patient is discharging to SNF for continued posthospitalization rehab. We will follow-up with orthopedics as outpatient. Discharge diagnosis: . - Time Spent with Patient Total time spent providing and/or coordinating discharge services: Greater than 30 minutes Medical - DS: Exam - Constitutional Vitals: Vital Signs Temp Pulse Resp BP Pulse Ox 05/30/19 08:00 98.5 F 18 108/68 94 05/30/19 03:45 97.8 F 81 18 100/63 94 05/30/19 00:00 97.3 F 78 16 124/75 94 05/29/19 19:02 98.3 F 83 24 H 125/81 93 05/29/19 16:00 98.6 F 20 130/80 92 05/29/19 12:00 99.4 F H 18 141/78 Intake and Output 05/29/19 05/30/19 05/30/19 21:59 05:59 13:59 Output Total 3 1 Balance -3 -1 Output: # of times incontinent of urine 3 1 Other: Urine Odor Normal Stool Size Moderate Stool Consistency Soft # Voids 1 # of times incontinent of 1 Bowels Weight 176 lb 3.2 oz Medical - DS: Data Labs on day of discharge: Labs from last 24 hours 05/30/19 05/29/19 05/29/19 04:25 15:00 11:20 Hgb 12.9 L Hct 39.0 L Troponin T < 0.01 Urine Color Colorless Urine Appearance Clear Urine pH 6.0 Ur Specific [place] 1.006 Urine Protein Neg Urine Glucose (UA) Negative Urine Ketones Neg Urine Occult Blood Neg Urine Nitrate Neg Urine Bilirubin Neg Urine Urobilinogen Neg Ur Leukocyte Esterase Neg Medical - DS: A/P - Patient/Caregiver Discharge Instructions Activity: as per physical therapy, increase activity as tolerated Diet: Regular Diet Prescriptions: Docusate Sodium [Colace] 100 mg PO BID #60 cap Transmission Status: Received by [facility] Carbidopa/Levodopa 25/100 [Sinemet 25/100] 1 tab PO BID@1200,2100 #30 tab Transmission Status: Received by [facility] Carbidopa/Levodopa 25/100 [Sinemet 25/100] 1 tab PO BID@1200,2100 #30 tab Transmission Status: Received by [facility] Sulfamethoxazole/Trimethoprim [Sulfamethoxazole-Tmp Ds Tablet] 1 tab PO BID #4 tab Transmission Status: Pending to [facility] Acetaminophen [Tylenol] 500 - 1,000 mg PO Q6HP PRN #60 oral.susp PRN Reason: Pain Transmission Status: Received by [facility] traMADol [Ultram] 50 mg PO Q6HP PRN #15 tab PRN Reason: Pain Prescription Printed Other Amb Orders: OT Discharge Order Location: None Selected Physical Therapy at Discharge - TSA Location: None Selected Brace/Splint Location: None Selected - Problem Maintenance (1) Acute decompensated heart failure Status: Acute - Follow up Plan Follow up with: Alvin Willett PA-C [Physician Front Desk Receptionist] - 06/11/19 3:10 pm Disposition: Xfer SNF Prognosis: Good Rehab Potential: Fair I certify that the patient requires SNF services: Yes Overall status at discharge: patient is progressing back to baseline Medical - DS: Qual - VTE Deep Vein Thrombosis/Pulmonary Embolism Present on Admission: No
== END 2019-05-30 13:05 | DRG 483 ==
LOC: MEDSUR 07:56
PROVIDERS: ADMIT Orthopaedic Surgery; ATTEND Internal Medicine